=== PATIENT | female | born 1980 | race Caucasian/White ===

== ENCOUNTER 2017-04-16 14:52 | Observation (INO) ==
[2017-04-16] MEDS ORDERED: Ondansetron 4 MG/2 ML VIAL IVP ONE (15:11)
[2017-04-16] MEDS ORDERED: Famotidine 20 MG/2 ML VIAL IVP ONE (15:11)
--- NOTE | 2017-04-16 15:16 | Emergency Department Note ---
Disposition Clinical Impression: DKA (diabetic ketoacidoses) Qualifiers: Diabetes mellitus type: type 1 Diabetes mellitus complication detail: without coma Qualified Code(s): E10.10 - Type 1 diabetes mellitus with ketoacidosis without coma Disposition: Admitted As Inpatient Condition: Good Time of Disposition: 18:01 Nausea/Vomiting/Diarrhea HPI - General Chief complaint: ED Abdominal Pain Stated complaint: vomiting, thinks in DKA Time Seen by Provider: 04/16/17 15:05 Source: patient Mode of arrival: ambulatory Limitations: no limitations Nursing Notes Reviewed: Yes Vital Signs Reviewed: Yes - History of Present Illness HPI Narrative: 36-year-old insulin dependent diabetic who presents complaining of vomiting that started at noon today. She states she vomited 10-12 times. She has some sharp epigastric abdominal pain associated with the vomiting. No back pain. She has no idea what her blood sugars up and running, she states she does not check them. She states she has been taking her insulin as recommended by her physician, 7 units of short-acting insulin at meal time 3 times daily, and Lantus at night. She states the last 2 weeks she has had a cough. She states she was treated with azithromycin and doxycycline by her primary care provider. She states initially it seemed to get somewhat better but then got worse again. She states last night she vomited couple times but got better. She began vomiting and today around noon. No diarrhea. Pt Subjective Complaint: nausea, vomiting, other (Cough) Onset (ago): week(s) Description of emesis: food contents (To half weeks) Number of episodes of emesis: 10 Associated Abdominal Pain: Yes (Epigastric) If pain, Location of pain: epigastric Radiation: other (None) Severity: moderate Quality: sharp Consistency: constant Worsens with: nonthing Context: other (Insulin-dependent diabetic) Associated symptoms: Reports: cough, nausea/vomiting - Related Data Home Medications Medication Instructions Recorded Confirmed Insulin Glargine,Hum.rec.anlog 20 unit SQ HS #0 03/05/15 04/16/17 [Lantus Solostar] Insulin ASPART [NovoLOG] 0 unit SQ TIDAC PRN 08/17/16 04/16/17 CloNIDine HCl [Kapvay] 0.1 mg PO BID 08/19/16 04/16/17 Lisinopril [Zestril] 20 mg PO DAILY 10/19/16 04/16/17 Omeprazole 20 mg PO DAILY 11/04/16 04/16/17 Gabapentin [Neurontin] 100 mg PO TID 04/16/17 04/16/17 HydrOXYzine Pamoate [Vistaril] 50 mg PO TID 04/16/17 04/16/17 Allergies Allergy/AdvReac Type Severity Reaction Status Date / Time codeine Allergy Hives Verified 10/19/16 12:38 hydrocodone Allergy Rash Verified 10/19/16 12:38 ibuprofen Allergy Rash Verified 10/19/16 12:38 tramadol AdvReac Anxiety Verified 10/19/16 12:38 All systems ED: reviewed and negative except as stated. Constitutional: Denies: fever, chills ENT ED: Denies: ear pain, throat pain Cardiovascular: Denies: chest pain Respiratory: Reports: cough. Denies: dyspnea, wheezes, sputum production Gastrointestinal: Reports: abdominal pain, nausea, vomiting. Denies: diarrhea, constipation Genitourinary: Denies: urgency, dysuria, frequency Musculoskeletal: Denies: back pain Integumentary: Denies: rash Past Medical History - Past Medical History Medical history: Reports: arthritis, asthma, cirrhosis, CHF, diabetes, GERD, hepatitis, migraine, other Surgical history: Reports: appendectomy, , orthopedic, other, RAFAEL/BSO ( Patient indicates that she still has menstrual periods are not sure whether she has had a hysterectomy) Psychiatric history: Reports: anxiety, depression, panic disorder, other [employer]UFA[employer]ING [employer]IST[employer] history: Reports: bilateral tubal ligation - Social History Smoking Status: Current every day smoker Smokeless Tobacco Status: No Alcohol use: Reports: none Drug use: Reports: none, opiates, IV Drug Use Physical Exam - General Limitations: no limitations General appearance: alert, in no apparent distress - Head Head exam: atraumatic, normocephalic - Eye Eye exam: Present: PERRL, EOMI. Absent: scleral icterus, conjunctival injection - ENT ENT exam: normal oropharynx, mucous membranes moist, TM's normal bilaterally - Neck Neck exam: Present: normal inspection, full ROM, trachea midline. Absent: tenderness, lymphadenopathy - Respiratory Respiratory exam: Present: normal lung sounds bilaterally. Absent: respiratory distress, wheezes - Cardiovascular Cardiovascular exam: Present: regular rate, normal rhythm, normal heart sounds - Abdominal Exam Abdominal exam: Present: soft, tenderness, normal bowel sounds. Absent: distention, guarding, rebound, organomegaly, mass Abdominal tenderness: Present: epigastrium, mild - Extremities Exam Extremities exam: Present: normal inspection, full ROM, normal capillary refill. Absent: pedal edema, calf tenderness - Back Exam Back exam: Absent: CVA tenderness (R), CVA tenderness (L) - Neurological Exam Neurological exam: Present: alert, oriented X3, normal gait - Psychiatric Psychiatric exam: Present: normal affect, normal mood - Skin Skin exam: Present: warm, dry, intact, normal color. Absent: rash Course - Reevaluation(s) Reevaluation #1: Discussed with Dr. Wahl. Accepts admission. Time: 17:55 Vital Signs Temperature 98.9 F 04/16/17 14:54 Pulse Rate 116 04/16/17 14:54 Respiratory Rate 18 04/16/17 14:54 Blood Pressure 195/92 04/16/17 14:54 O2 Sat by Pulse Oximetry 98 04/16/17 14:54 Temperature 98.9 F 04/16/17 14:54 Pulse Rate 115 04/16/17 17:48 Respiratory Rate 18 04/16/17 18:41 Blood Pressure 155/72 04/16/17 18:41 O2 Sat by Pulse Oximetry 97 04/16/17 17:48 Oxygen Delivery Oxygen Delivery Room Air Nausea/Vomiting/Diarrhea - [facility] Narrative Medical decision making narrative: Differential includes but is not limited to DKA, dehydration, viral gastroenteritis, gastritis, peptic ulcer disease, pancreatitis, hepatitis, cholecystitis, pneumonia. Clinically I think the patient's in early DKA. Her bicarbonate is decreased, she has no anion gap. Her blood sugar is 362. Her bicarbonate is 13. Her pH is 7.36. She was hydrated. She was only given 5 units of regular insulin. She was not started on insulin drip. After about an hour her blood sugars down to 260. I do not think she needs an insulin drip. She has had no vomiting. She has had Zofran IV. Her chest x-ray shows no evidence of pneumonia. Increase DKA may be related to her viral symptoms and her lack of compliance with monitoring her blood sugar and diet. I discussed case with Dr. Wahl. He is agreeable with observation admission to a telemetry bed. I will order repeat blood sugar and electrolytes. I will continue her IV fluids for now. - Lab Data Lab results reviewed: Yes I reviewed the patient's lab results. Result diagrams: 04/16/17 16:02 04/16/17 16:02 Lab Results 04/16/17 04/16/17 04/16/17 Range/Units 15:02 15:11 16:02 WBC 10.5 (4.3-11.1) K/mcL RBC 4.17 (3.82-4.97) M/mcL Hgb 11.7 (11.5-15.4) g/dL Hct 34.5 L (35.3-44.9) % MCV 82.7 L (83.0-100.0) fL MCH 28.1 (28.0-33.3) pg MCHC 33.9 (31.6-35.5) g/dL RDW 12.5 (11.5-14.5) % Plt Count 170 (140-400) K/mcL MPV 12.2 (9.4-12.4) fL Immature Gran % 0.6 (0-4) % Seg Neutrophils % 83.6 % Lymphocytes % 12.0 % Monocytes % 2.2 % Eosinophils % 1.1 % Basophils % 0.5 % Neutrophils # 8.8 (1.6-8.9) K/mcL Lymphocytes # 1.3 (0.6-4.6) K/mcL Monocytes # 0.2 (0.0-1.3) K/mcL Eosinophils # 0.1 (0.0-0.6) K/mcL Basophils # 0.1 (0.0-0.2) K/mcL VBG pH 7.36 (7.32-7.42) pH Units VBG pCO2 31.6 L (41-51) mmHg VBG pO2 165.0 H (25-40) mmHg VBG HCO3 17.8 L (21-27) mEq/L Sodium (136-145) mEq/L Potassium (3.5-4.5) mEq/L Chloride (98-109) mEq/L Carbon Dioxide (19-29) mEq/L BUN (7-20) mg/dL Creatinine (0.57-1.11) mg/dL Est GFR ( Amer) (> 60) Est GFR (Non-Af Amer) (> 60) BUN/Creatinine Ratio (6-26) Glucose (70-99) mg/dL POC Glucose 386 H (58-89) Calculated Osmolality (280-300) Calcium (8.6-10.8) mg/dL Total Bilirubin (0.2-1.2) mg/dL AST (5-34) Units/L ALT (0-55) Units/L Alkaline Phosphatase (38-126) Units/L Serum Total Protein (6.0-8.3) g/dL Albumin (3.5-5.0) g/dL Globulin (2.4-3.5) g/dL Albumin/Globulin Ratio (1.1-2.2) Beta-Hydroxybutyric Acd (0.02-0.27) mmol/L Urine Color (Yellow) Urine Clarity (Clear) Urine pH (5.0-8.0) pH Units Ur Specific [place] (1.010-1.025) Urine Protein (Neg-Trace) mg/dL Urine Glucose (UA) (Normal) mg/dL Urine Ketones (Negative) mg/dL Urine Blood (Negative) Urine Nitrite (Negative) Urine Bilirubin (Negative) Urine Urobilinogen (Normal) mg/dL Ur Leukocyte Esterase (Negative) Urine Microscopic RBC (0-3) per hpf Urine Microscopic WBC (0-3) per hpf Ur Squamous Epith Cells (None-Few) per lpf Urine Bacteria (None-Few) per hpf Urine Yeast (None Seen) per hpf Ur Culture Indicated? (NO) Urine Test (Negative) Urine Opiates Screen (Rltyum=441) ng/mL Ur Oxycodone Screen (Cutoff= 100) ng/mL Ur Barbiturates Screen (Cbzbva=642) ng/mL Ur Phencyclidine Scrn (Cutoff=25) ng/mL Ur Amphetamines Screen (Idwlxt=6870) ng/mL U Benzodiazepines Scrn (Zcywoi=786) ng/mL Urine Cocaine Screen (Cutoff= 300) ng/mL U Marijuana (THC) Screen (Cutoff = 50) ng/mL 04/16/17 04/16/17 04/16/17 Range/Units 16:02 16:20 16:20 WBC (4.3-11.1) K/mcL RBC (3.82-4.97) M/mcL Hgb (11.5-15.4) g/dL Hct (35.3-44.9) % MCV (83.0-100.0) fL MCH (28.0-33.3) pg MCHC (31.6-35.5) g/dL RDW (11.5-14.5) % Plt Count (140-400) K/mcL MPV (9.4-12.4) fL Immature Gran % (0-4) % Seg Neutrophils % % Lymphocytes % % Monocytes % % Eosinophils % % Basophils % % Neutrophils # (1.6-8.9) K/mcL Lymphocytes # (0.6-4.6) K/mcL Monocytes # (0.0-1.3) K/mcL Eosinophils # (0.0-0.6) K/mcL Basophils # (0.0-0.2) K/mcL VBG pH (7.32-7.42) pH Units VBG pCO2 (41-51) mmHg VBG pO2 (25-40) mmHg VBG HCO3 (21-27) mEq/L Sodium 135 L (136-145) mEq/L Potassium 5.6 H (3.5-4.5) mEq/L Chloride 103 (98-109) mEq/L Carbon Dioxide 13 L (19-29) mEq/L BUN 17 (7-20) mg/dL Creatinine 1.29 H (0.57-1.11) mg/dL Est GFR ( Amer) 56 L (> 60) Est GFR (Non-Af Amer) 46 L (> 60) BUN/Creatinine Ratio 13 (6-26) Glucose 362 H (70-99) mg/dL POC Glucose (58-89) Calculated Osmolality 296 (280-300) Calcium 10.1 (8.6-10.8) mg/dL Total Bilirubin 0.3 (0.2-1.2) mg/dL AST 13 (5-34) Units/L ALT 12 (0-55) Units/L Alkaline Phosphatase 127 H (38-126) Units/L Serum Total Protein 8.1 (6.0-8.3) g/dL Albumin 3.2 L (3.5-5.0) g/dL Globulin 4.9 H (2.4-3.5) g/dL Albumin/Globulin Ratio 0.7 L (1.1-2.2) Beta-Hydroxybutyric Acd > 2.00 H (0.02-0.27) mmol/L Urine Color Yellow (Yellow) Urine Clarity Clear (Clear) Urine pH 5.5 (5.0-8.0) pH Units Ur Specific [place] 1.015 (1.010-1.025) Urine Protein 100 H (Neg-Trace) mg/dL Urine Glucose (UA) 500 H (Normal) mg/dL Urine Ketones >=160 H (Negative) mg/dL Urine Blood Small H (Negative) Urine Nitrite Negative (Negative) Urine Bilirubin Negative (Negative) Urine Urobilinogen Normal (Normal) mg/dL Ur Leukocyte Esterase Negative (Negative) Urine Microscopic RBC 0-3 (0-3) per hpf Urine Microscopic WBC 3-5 H (0-3) per hpf Ur Squamous Epith Cells Few (None-Few) per lpf Urine Bacteria Few (None-Few) per hpf Urine Yeast Few H (None Seen) per hpf Ur Culture Indicated? NO (NO) Urine Test Negative (Negative) Urine Opiates Screen (Vuekgp=843) ng/mL Ur Oxycodone Screen (Cutoff= 100) ng/mL Ur Barbiturates Screen (Edjpph=392) ng/mL Ur Phencyclidine Scrn (Cutoff=25) ng/mL Ur Amphetamines Screen (Kxcmrn=3816) ng/mL U Benzodiazepines Scrn (Baehhk=410) ng/mL Urine Cocaine Screen (Cutoff= 300) ng/mL U Marijuana (THC) Screen (Cutoff = 50) ng/mL 04/16/17 04/16/17 Range/Units 16:20 17:46 WBC (4.3-11.1) K/mcL RBC (3.82-4.97) M/mcL Hgb (11.5-15.4) g/dL Hct (35.3-44.9) % MCV (83.0-100.0) fL MCH (28.0-33.3) pg MCHC (31.6-35.5) g/dL RDW (11.5-14.5) % Plt Count (140-400) K/mcL MPV (9.4-12.4) fL Immature Gran % (0-4) % Seg Neutrophils % % Lymphocytes % % Monocytes % % Eosinophils % % Basophils % % Neutrophils # (1.6-8.9) K/mcL Lymphocytes # (0.6-4.6) K/mcL Monocytes # (0.0-1.3) K/mcL Eosinophils # (0.0-0.6) K/mcL Basophils # (0.0-0.2) K/mcL VBG pH (7.32-7.42) pH Units VBG pCO2 (41-51) mmHg VBG pO2 (25-40) mmHg VBG HCO3 (21-27) mEq/L Sodium (136-145) mEq/L Potassium (3.5-4.5) mEq/L Chloride (98-109) mEq/L Carbon Dioxide (19-29) mEq/L BUN (7-20) mg/dL Creatinine (0.57-1.11) mg/dL Est GFR ( Amer) (> 60) Est GFR (Non-Af Amer) (> 60) BUN/Creatinine Ratio (6-26) Glucose (70-99) mg/dL POC Glucose 260 H (58-89) Calculated Osmolality (280-300) Calcium (8.6-10.8) mg/dL Total Bilirubin (0.2-1.2) mg/dL AST (5-34) Units/L ALT (0-55) Units/L Alkaline Phosphatase (38-126) Units/L Serum Total Protein (6.0-8.3) g/dL Albumin (3.5-5.0) g/dL Globulin (2.4-3.5) g/dL Albumin/Globulin Ratio (1.1-2.2) Beta-Hydroxybutyric Acd (0.02-0.27) mmol/L Urine Color (Yellow) Urine Clarity (Clear) Urine pH (5.0-8.0) pH Units Ur Specific [place] (1.010-1.025) Urine Protein (Neg-Trace) mg/dL Urine Glucose (UA) (Normal) mg/dL Urine Ketones (Negative) mg/dL Urine Blood (Negative) Urine Nitrite (Negative) Urine Bilirubin (Negative) Urine Urobilinogen (Normal) mg/dL Ur Leukocyte Esterase (Negative) Urine Microscopic RBC (0-3) per hpf Urine Microscopic WBC (0-3) per hpf Ur Squamous Epith Cells (None-Few) per lpf Urine Bacteria (None-Few) per hpf Urine Yeast (None Seen) per hpf Ur Culture Indicated? (NO) Urine Test (Negative) Urine Opiates Screen Negative (Efpaxr=306) ng/mL Ur Oxycodone Screen Negative (Cutoff= 100) ng/mL Ur Barbiturates Screen Negative (Fzrqtk=160) ng/mL Ur Phencyclidine Scrn Negative (Cutoff=25) ng/mL Ur Amphetamines Screen Negative ([place]=8460) ng/mL U Benzodiazepines Scrn Negative (Jxbzam=677) ng/mL Urine Cocaine Screen Negative (Cutoff= 300) ng/mL U Marijuana (THC) Screen Negative (Cutoff = 50) ng/mL - Radiology Data Radiology results reviewed: Yes I reviewed the patient's radiology results. Impressions Chest X-Ray 04/16/17 15:13 IMPRESSION: No evidence of acute cardiopulmonary disease. D/ / Roberto Javier MD / Roberto Javier MD Interpreting Provider: Roberto Javier MD - EKG Data EKG attestation: Yes I reviewed and interpreted this EKG. EKG results narrative: Sinus tachycardia, rate of 109, left atrial enlargement, left ventricular hypertrophy. Peak T waves. Rhythm strip shows sinus tachycardia with rate 109 , VT interval 124 ms, QRS 82 ms with no other ectopy as interpreted by me. This is compared to a tracing dated 10/19/16, the LVH changes are new. The T waves are more peaked today. Critical Care Time Critical Care Time: Yes Total Critical Care Time: 30 Attestation: Critical care time includes my initial evaluation, reassessment, review of laboratory, chest x-ray. It includes consultation with the hospitalist for admission. No procedures were performed.
[2017-04-16 16:16] LABS: Basophils # 0.1 K/mcL (0.0-0.2); Basophils % 0.5 %; Eosinophils # 0.1 K/mcL (0.0-0.6); Eosinophils % 1.1 %; Hematocrit 34.5 % (35.3-44.9); Hemoglobin 11.7 g/dL (11.5-15.4); Immature Granulocytes % 0.6 % (0-4); Lymphocytes # 1.3 K/mcL (0.6-4.6); Mean Corpuscular HGB Conc 33.9 g/dL (31.6-35.5); Mean Corpuscular Hemoglobin 28.1 pg (28.0-33.3); Mean Corpuscular Volume 82.7 fL (83.0-100.0); Mean Platelet Volume 12.2 fL (9.4-12.4); Monocytes # 0.2 K/mcL (0.0-1.3); Monocytes % 2.2 %; Neutrophils # 8.8 K/mcL (1.6-8.9); Platelet Count 170 K/mcL (140-400); Red Blood Count 4.17 M/mcL (3.82-4.97); Red Cell Distribution Width 12.5 % (11.5-14.5); Segmented Neutrophils % 83.6 %
[2017-04-16] MEDS: 0.9 % Sodium Chloride 1,000 ML IVC SCH ×5 (16:17→20:21)
[2017-04-16 16:19] LABS: Beta-Hydroxybutyric Acid > 2.00 mmol/L (0.02-0.27)
[2017-04-16 16:27] LABS: Alanine Aminotransferase 12 Units/L (0-55); Albumin 3.2 g/dL (3.5-5.0); Albumin/Globulin Ratio 0.7 (1.1-2.2); Alkaline Phosphatase 127 Units/L (38-126); Aspartate Amino Transferase 13 Units/L (5-34); BUN/Creatinine Ratio 13 (6-26); Bilirubin,Total 0.3 mg/dL (0.2-1.2); Blood Urea Nitrogen 17 mg/dL (7-20); Calcium 10.1 mg/dL (8.6-10.8); Carbon Dioxide 13 mEq/L (19-29); Chloride 103 mEq/L (98-109); Globulin 4.9 g/dL (2.4-3.5); Glucose 362 mg/dL (70-99); Osmolality,Calculated 296 (280-300); Potassium 5.6 mEq/L (3.5-4.5); Sodium 135 mEq/L (136-145); Total Protein 8.1 g/dL (6.0-8.3); eGFR For African Americans 56 (> 60); eGFR For Non-African Americans 46 (> 60)
[2017-04-16 16:33] LABS: Bilirubin,Urine Negative (Negative); Blood,Urine Small (Negative); Clarity,Urine Clear (Clear); Color,Urine Yellow (Yellow); Glucose,Urine (UA) 500 mg/dL (Normal); Ketones,Urine >=160 mg/dL (Negative); Leukocyte Esterase,Urine Negative (Negative); Nitrite,Urine Negative (Negative); PH,Urine 5.5 pH Units (5.0-8.0); Protein,Urine 100 mg/dL (Neg-Trace); Specific Gravity,Urine 1.015 (1.010-1.025); Urobilinogen,Urine Normal (Normal)
[2017-04-16 16:36] LABS: VBG PCO2 31.6 mmHg (41-51); VBG PH 7.36 pH Units (7.32-7.42)
[2017-04-16 16:37] LABS: VBG HCO3 17.8 mEq/L (21-27)
[2017-04-16 16:40] LABS: Amphetamine Screen,Urine Negative ng/mL (Cutoff=1000); Bacteria,Urine Few per hpf (None-Few); Barbiturate Screen,Urine Negative ng/mL (Cutoff=200); Benzodiazepines Screen,Urine Negative ng/mL (Cutoff=200); Cannabinoid Screen,Urine Negative ng/mL (Cutoff = 50); Cocaine Screen,Urine Negative ng/mL (Cutoff= 300); Opiate Screen,Urine Negative ng/mL (Cutoff=300); Phencyclidine Screen,Urine Negative ng/mL (Cutoff=25); RBC,Urine 0-3 per hpf (0-3); Squamous Epithelial Cell,Urine Few per lpf (None-Few); Yeast,Urine Few per hpf (None Seen)
[2017-04-16] MEDS ORDERED: Insulin Regular, Human 100 UNIT/ML IV ONE (16:40)
[2017-04-16] MEDS ORDERED: 0.9 % Sodium Chloride 1,000 ML IVC SCH (18:42)
[2017-04-16] MEDS ORDERED: Ondansetron 4 MG/2 ML VIAL IVP PRN (18:42)
[2017-04-16] MEDS ORDERED: Naloxone 0.4 MG/ML INJ IVP PRN (18:42)
[2017-04-16] MEDS ORDERED: *HR* Dextrose 50 % in Water (Syg) 50 ML SYRINGE IVP PRN (18:42)
[2017-04-16] MEDS ORDERED: Dextrose Gel 15 GM PO PRN ×2 (18:42)
[2017-04-16] MEDS ORDERED: D5% in Water 1,000 ML IVC PRN (18:42)
[2017-04-16 20:10] LABS: Hemoglobin A1C 9.1 %
[2017-04-16 20:18] LABS: BUN/Creatinine Ratio 14 (6-26); Blood Urea Nitrogen 14 mg/dL (7-20); Calcium 8.9 mg/dL (8.6-10.8); Carbon Dioxide 15 mEq/L (19-29); Chloride 110 mEq/L (98-109); Glucose 236 mg/dL (70-99); Osmolality,Calculated 292 (280-300); Potassium 4.5 mEq/L (3.5-4.5); Sodium 137 mEq/L (136-145); eGFR For African Americans > 60 (> 60); eGFR For Non-African Americans > 60 (> 60)
[2017-04-16] MEDS: hydrOXYzine pamoate 25 MG CAPSULE PO SCH (20:22)
[2017-04-16] MEDS: Gabapentin 100 MG CAPSULE PO SCH (20:22)
[2017-04-16] MEDS: cloNIDine HCl 0.1 MG TABLET PO SCH (20:23)
[2017-04-16] MEDS ORDERED: Insulin LISPRO 300 UNITS/3 ML VIAL SQ SCH (21:00)
[2017-04-17] MEDS ORDERED: Insulin LISPRO 300 UNITS/3 ML VIAL SQ SCH
[2017-04-17] MEDS: Acetaminophen 325 MG TABLET PO PRN ×2 (03:47→11:40)
[2017-04-17] MEDS: 0.9 % Sodium Chloride 1,000 ML IVC SCH (06:49)
[2017-04-17] MEDS: Gabapentin 100 MG CAPSULE PO SCH (07:47)
[2017-04-17] MEDS: hydrOXYzine pamoate 25 MG CAPSULE PO SCH (07:47)
[2017-04-17] MEDS: cloNIDine HCl 0.1 MG TABLET PO SCH (07:47)
[2017-04-17] MEDS: Insulin LISPRO 300 UNITS/3 ML VIAL SQ SCH ×2 (07:48→11:41)
[2017-04-17] MEDS ORDERED: Lisinopril 20 MG TABLET PO SCH (09:00)
[2017-04-17 11:35] VITALS: BP 120/72
--- NOTE | 2017-04-17 11:37 | Internal Med History&Physical ---
Date of Encounter: 04/17/17 Time of Encounter: 11:05 Assessment and Plan (1) DKA (diabetic ketoacidoses) Current visit: Yes Status: Acute She has been given insulin and IV fluids. Follow-up labs will be done. Qualifiers: Diabetes mellitus type: type 1 Diabetes mellitus complication detail: without coma Qualified Code(s): E10.10 - Type 1 diabetes mellitus with ketoacidosis without coma Internal Medicine - H&P: HPI Chief complaint: Vomiting Admitted From: Home Plans for Post Hospital Care: Home History of present illness: Ms. Pappas is a 36 year old female came to emergency room stating she had onset of vomiting approximately noon the day of admission. She had 10-12 episodes of vomiting without obvious hematemesis. She had epigastric discomfort. She came to emergency room and was evaluated and found to have mild diabetic ketoacidosis. She was admitted to [facility] floor for ongoing care needs. She states she has had no vomiting since awakening today and has tolerated her meals without difficulty. She was diagnosed with DM type I at age 10. She does not check her blood sugars at home. She was told she had a "thyroid problem" during a September 2016 [facility] hospitalization but does not know details. She does not have known hyperlipidemia. Past Med Surg Social Fam HX - Past Medical History Medical history: arthritis, asthma, cirrhosis, CHF, diabetes, GERD, hepatitis, migraine, other Psychiatric history: anxiety, depression, panic disorder, other - Past Surgical History Surgical History: appendectomy, , orthopedic, other, RAFAEL/BSO - Social History Smoking Status: Current every day smoker Smokeless Tobacco Status: No Alcohol use: none Drug use: opiates, IV Drug Use - Family History Mother Adopted: No Family Member Ethnicity: Non- Living Status: Still Living Hx Family Cardiac Disorders: Yes Hx Family Respiratory Disorders: Yes Hx Family Cancer: Yes Hx Family GI Disorders: Yes Hx Family Endocrine Disorder: Yes Hx Family Neuromuscular Disorders: No Hx Family Neurologic Disorders: No Hx Family HEENT Disorders: No Hx Family Autoimmune Disorders: No Internal Medicine - H&P: Meds Insulin Glargine,Hum.rec.anlog [Lantus Solostar] 20 unit SQ HS #0 03/05/15 [ History] Insulin ASPART [NovoLOG] 0 unit SQ TIDAC PRN 08/17/16 [History] CloNIDine HCl [Kapvay] 0.1 mg PO BID 08/19/16 [History] Lisinopril [Zestril] 20 mg PO DAILY 10/19/16 [History] Omeprazole 20 mg PO DAILY 11/04/16 [History] Gabapentin [Neurontin] 100 mg PO TID 04/16/17 [History] HydrOXYzine Pamoate [Vistaril] 50 mg PO TID 04/16/17 [History] 3 Allergy/AdvReac Type Severity Reaction Status Date / Time codeine Allergy Hives Verified 10/19/16 12:38 hydrocodone Allergy Rash Verified 10/19/16 12:38 ibuprofen Allergy Rash Verified 10/19/16 12:38 tramadol AdvReac Anxiety Verified 10/19/16 12:38 All Systems PM: A 10-system review of systems was performed and is negative for pertinent findings except as documented above in the HPI. Review of systems: Gen.: She states her weight has decreased approximately 15 pounds in the past 2 months Cardiovascular: She has history of hypertension. She reports she has been diagnosed with CHF. An echocardiogram done 10/06/2015 showed LVEF of 60% with moderate diastolic dysfunction of the left ventricle. There was no significant valvular abnormalities. She has occasional sinus tachycardia. She denies DVT or pulmonary embolus. Respiratory: She has been diagnosed with chronic bronchitis but continues to smoke cigarettes. States she has "breathing problems" and received a Z-Ti within the past month. She does not use home oxygen. GI: She has been diagnosed with hepatitis C but has not received treatment. She has had a gallstone but has not had cholecystectomy. Denies disorders of her exocrine pancreas. : She denies hematuria dysuria or kidney stones Neurologic: She states she had a seizure in September 2016 which was attributed to drug overdose. She required intubation and ventilatory support. She has had no further seizures. She denies large distribution strokes. Endocrine: As per history of present illness Hematology/oncology: She denies blood disorders cancers or anemia Psychiatric: She has anxiety but denies depression or other mental health issues Musk skeletal: She denies arthritis or gout. She reports right ankle surgery on 5 occasions between December 2014 and July 2015. She had partial fibula resection. - Constitutional Vitals: Temp Pulse Resp BP Pulse Ox 98.0 F 95 16 137/72 96 04/17/17 07:55 04/17/17 07:55 04/17/17 07:55 04/17/17 07:55 04/17/17 07:55 Exam: Gen.: She is a well-developed well-nourished female lying in bed who appears in no acute distress at present time HEENT: Head is atraumatic and normocephalic. Eyes: EOMI. There is no scleral icterus. Mouth: Mucosa is moist. Neck: Supple and nontender. There is no thyromegaly or adenopathy noted. Heart: Regular without murmurs gallops or ectopics. No wheezes or crackles are heard. Abdomen: Bowel sounds are present. The abdomen is nontender to palpation. Extremities: There is no cyanosis edema or clubbing noted. Dorsalis pedis and posttibial pulses 1-2 over 2 bilaterally. She has a well-healed surgical scar on her medial right ankle area. Neurologic: Mental status: She is talkative and a good historian. Cranial nerves: Smile is symmetric. Forehead wrinkles bilaterally. Tongue protrudes midline. EOMI. Motor: There is no pronator drift. Cerebellar: Finger to nose is intact bilaterally. Skin: Warm and dry. She has multiple tattoos. Internal Med - H&P Results - Labs CBC & Chem 7: 04/16/17 16:02 04/16/17 19:54 Labs: BMP 04/16/17 19:54 Sodium 137 Potassium 4.5 D Chloride 110 H Carbon Dioxide 15 L BUN 14 Creatinine 0.99 Glucose 236 H Calcium 8.9
[2017-04-17 13:17] LABS: BUN/Creatinine Ratio 12 (6-26); Blood Urea Nitrogen 13 mg/dL (7-20); Calcium 8.4 mg/dL (8.6-10.8); Carbon Dioxide 15 mEq/L (19-29); Chloride 112 mEq/L (98-109); Glucose 291 mg/dL (70-99); Osmolality,Calculated 295 (280-300); Potassium 4.4 mEq/L (3.5-4.5); Sodium 137 mEq/L (136-145); eGFR For African Americans > 60 (> 60); eGFR For Non-African Americans 56 (> 60)
[2017-04-17 13:33] LABS: Beta-Hydroxybutyric Acid 0.18 mmol/L (0.02-0.27)
--- NOTE | 2017-04-17 14:23 | Discharge Summary ---
Date of Encounter: 04/17/17 Time of Encounter: 14:10 - Discharge Diagnosis (1) DKA (diabetic ketoacidoses) Priority: Primary Status: Acute Qualifiers: Diabetes mellitus type: type 1 Diabetes mellitus complication detail: without coma Qualified Code(s): E10.10 - Type 1 diabetes mellitus with ketoacidosis without coma - Discharge Medications Prescriptions: Promethazine [Phenergan] 12.5 mg PO Q6H #6 tablet Home Medications: Insulin Glargine,Hum.rec.anlog [Lantus Solostar] 20 unit SQ HS #0 03/05/15 [ History] Insulin ASPART [NovoLOG] 0 unit SQ TIDAC PRN 08/17/16 [History] CloNIDine HCl [Kapvay] 0.1 mg PO BID 08/19/16 [History] Lisinopril [Zestril] 20 mg PO DAILY 10/19/16 [History] Omeprazole 20 mg PO DAILY 11/04/16 [History] Gabapentin [Neurontin] 100 mg PO TID 04/16/17 [History] HydrOXYzine Pamoate [Vistaril] 50 mg PO TID 04/16/17 [History] Promethazine [Phenergan] 12.5 mg PO Q6H #6 tablet 04/17/17 [Rx] Allergies/Adverse Reactions: 3 Allergy/AdvReac Type Severity Reaction Status Date / Time codeine Allergy Hives Verified 10/19/16 12:38 hydrocodone Allergy Rash Verified 10/19/16 12:38 ibuprofen Allergy Rash Verified 10/19/16 12:38 tramadol AdvReac Anxiety Verified 10/19/16 12:38 Date of admission: 04/16/17 18:19 Primary care physician: Pipo Roberts CNP - Patient Status Disposition: Home, Self-Care Condition: Good Functional capacity at discharge: independent ambulation Overall status at discharge: patient is progressing back to baseline - Discharge Instructions Follow Up With: Pipo Roberts CNP [Primary Care Provider] - 1 week - Diet and Activity Activity: resume usual activities as tolerated Diet: diabetic diet Hospital course: Ms. Pappas is a 36 year old female who came to emergency room stating she had onset of vomiting approximately noon the day of admission. She had 10-12 episodes of vomiting without obvious hematemesis. She had epigastric discomfort. She came to emergency room and was evaluated and found to have mild diabetic ketoacidosis. She was admitted to [facility] for ongoing care needs. Initial orders were written by the emergency room physician. I saw her on April 17 performed a history and physical and discharge. She was given IV fluids and prn antiemetics. She had no further vomiting after admission to [facility]. She was able to tolerate breakfast and lunch on April 17 without difficulty. Follow-up lab work showed resolution of ketosis. Her serum CO2 was still slightly low at 15. Her PCP can recheck this. Her creatinine aurelio to 1.10 with estimated GFR 56 on the day of discharge. She felt back to her baseline however and wished to be discharged home which I felt was reasonable. She will resume her home Lantus insulin dose. Her PCP can assist her in getting a home glucose meter with supplies to monitor her blood sugars. I encouraged her to discontinue smoking. She will follow with her PCP Pipo Roberts CNP within 1 week. - Time Spent with Patient Total time spent providing and/or coordinating discharge services: - Constitutional Vitals: Temp Pulse Resp BP Pulse Ox 98.8 F 93 16 120/72 96 04/17/17 11:33 04/17/17 11:33 04/17/17 11:33 04/17/17 11:33 04/17/17 11:54
--- NOTE | 2017-04-18 18:17 | Electrocardiograph Report ---
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
== END 2017-04-17 14:48 | disposition home or self-care (01) ==
LOC: EMEROOPIK 14:52 → INPPIK 14:52
PROVIDERS: ADMIT Internal Medicine; ATTEND Internal Medicine

== ENCOUNTER 2017-05-12 10:45 | Observation (INO) ==
[2017-05-12] MEDS ORDERED: Ondansetron ODT 4 MG TAB.RAPDIS SL ONE (11:07)
--- NOTE | 2017-05-12 11:08 | Emergency Department Note ---
Disposition Clinical Impression: Dehydration, Uncontrolled type 2 DM with hyperosmolar nonketotic hyperglycemia Disposition: Admitted As Inpatient Condition: Fair Time of Disposition: 12:48 (balbina velez [facility]) Nausea/Vomiting/Diarrhea HPI - General Chief complaint: ED Nausea/Vomiting/Diarrhea Stated complaint: vomiting, elevated blood sugar, Time Seen by Provider: 05/12/17 11:00 Source: patient Mode of arrival: ambulatory Limitations: no limitations Nursing Notes Reviewed: Yes Vital Signs Reviewed: Yes - History of Present Illness Pt Subjective Complaint: nausea, vomiting, abdominal pain Onset (ago): day(s) Description of emesis: food contents Description of Diarrhea: water If pain, Location of pain: diffuse Severity: moderate Severity scale (1-10): 4 Quality: cramping Consistency: constant Improves with: nothing Worsens with: nonthing Context: other (frequently due to diabetes) Associated symptoms: Reports: myalgias, loss of appetite, malaise, nausea/ vomiting, weakness. Denies: chest pain, cough, diaphoresis, fever/chills, headaches, dysuria, shortness of breath, syncope - Related Data Home Medications Medication Instructions Recorded Confirmed Insulin Glargine,Hum.rec.anlog 20 unit SQ HS #0 03/05/15 05/12/17 [Lantus Solostar] Insulin ASPART [NovoLOG] 0 unit SQ TIDAC PRN 08/17/16 05/12/17 CloNIDine HCl [Kapvay] 0.1 mg PO BID 08/19/16 05/12/17 Lisinopril [Zestril] 30 mg PO DAILY 10/19/16 04/29/17 Omeprazole 20 mg PO DAILY 11/04/16 05/12/17 Gabapentin [Neurontin] 600 mg PO TID 04/16/17 04/29/17 HydrOXYzine Pamoate [Vistaril] 50 mg PO TID 04/16/17 05/12/17 Insulin Glargine [Lantus] 10 unit SQ TID 05/12/17 05/12/17 Naltrexone Microspheres [Vivitrol] 380 mg IM QMONTH 05/12/17 05/12/17 Promethazine [Phenergan] 12.5 mg PO Q6H PRN 05/12/17 05/12/17 Previous Rx's Medication Instructions Recorded predniSONE [PredniSONE] 40 mg PO DAILY #10 tablet 10/01/17 Allergies Allergy/AdvReac Type Severity Reaction Status Date / Time Amoxicillin Allergy See Verified 05/12/17 10:47 Comments codeine Allergy Hives Verified 05/12/17 10:47 hydrocodone Allergy Rash Verified 05/12/17 10:47 ibuprofen Allergy Rash Verified 05/12/17 10:47 tramadol AdvReac Anxiety Verified 05/12/17 10:47 All systems ED: reviewed and negative except as stated. Review of Systems: As Per HPI Constitutional: Reports: weakness. Denies: fever, chills Eyes: Denies: eye pain ENT ED: Denies: ear pain, throat pain Cardiovascular: Reports: palpitations. Denies: chest pain, dyspnea on exertion Respiratory: Denies: cough, dyspnea, wheezes Gastrointestinal: Reports: nausea, vomiting. Denies: abdominal pain Genitourinary: Denies: urgency, dysuria, frequency Musculoskeletal: Denies: back pain, neck pain, joint swelling Integumentary: Denies: rash, abrasion Neurological: Denies: headache, weakness Psychiatric: Denies: anxiety Endocrine: Denies: fatigue Hematological/Lymphatic: Denies: easy bleeding Allergic/Immunologic: Denies: facial swelling Past Medical History - Past Medical History Attestation: Yes The following information was validated with the patient. 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 - Social History Smoking Status: Current every day smoker Smokeless Tobacco Status: No Alcohol use: Reports: none Drug use: Reports: opiates, IV Drug Use Physical Exam - General Limitations: no limitations General appearance: alert, in no apparent distress, anxious - Head Head exam: atraumatic, normocephalic, normal inspection - Eye Eye exam: Present: normal appearance, PERRL, EOMI - ENT ENT exam: normal exam, normal oropharynx, mucous membranes moist, normal external ear exam - Neck Neck exam: Present: normal inspection, full ROM, trachea midline - Chest Chest inspection: Present: normal inspection - Respiratory Respiratory exam: Present: normal lung sounds bilaterally - Cardiovascular Cardiovascular exam: Present: regular rate, normal rhythm, normal heart sounds - Abdominal Exam Abdominal exam: Present: soft, Non-Tender, hyperactive bowel sounds. Absent: mass, pulsatile mass - Extremities Exam Extremities exam: Present: normal inspection, full ROM, normal capillary refill. Absent: tenderness, pedal edema, joint swelling, calf tenderness - Expanded Lower Extremity Exam Gait: observed and normal - Back Exam Back exam: Present: normal inspection, full ROM. Absent: muscle spasm - Neurological Exam Neurological exam: Present: alert, oriented X3, CN II-XII intact - Psychiatric Psychiatric exam: Present: normal affect, normal mood - Skin Skin exam: Present: warm, dry, intact, normal color Course Course Narrative: Patient was seen and examined patient was given 8 mg Zofran still continue to have actively vomiting was given IM Phenergan and still continued to have episodes of heart vomitus type presentation though her white count is elevated is most likely is a stress reaction she is tachycardic and tachypneic this is most likely secondary to her being dehydrated though she does have some of the indicators for sepsis this does appear to be all related to dehydration and gastroparesis most likely etiology patient is going to this frequently patient is admitted transferred to [facility] Dr. Wahl Vital Signs Temperature 97.8 F 05/12/17 10:53 Pulse Rate 116 05/12/17 10:53 Respiratory Rate 18 05/12/17 10:53 Blood Pressure 152/69 05/12/17 10:53 O2 Sat by Pulse Oximetry 98 05/12/17 10:53 Temperature 97.8 F 05/12/17 10:53 Pulse Rate 113 05/12/17 13:00 Respiratory Rate 18 05/12/17 13:00 Blood Pressure 161/73 05/12/17 13:00 O2 Sat by Pulse Oximetry 97 05/12/17 13:00 Oxygen Delivery Oxygen Delivery Nasal Cannula Nausea/Vomiting/Diarrhea - MDM Narrative Medical decision making narrative: Diabetes complications - Differential Diagnosis Likely: gastroenteritis, dehydration - Medical Records Medical records reviewed: Yes I reviewed the patient's medical records. - Lab Data Lab results reviewed: Yes I reviewed the patient's lab results. Result diagrams: 05/12/17 11:20 05/12/17 11:20 Lab Results 05/12/17 05/12/17 05/12/17 Range/Units 11:20 11:20 12:25 WBC 25.8 H (4.3-11.1) K/mcL RBC 3.70 L (3.82-4.97) M/mcL Hgb 10.3 L (11.5-15.4) g/dL Hct 31.9 L (35.3-44.9) % MCV 86.2 (83.0-100.0) fL MCH 27.8 L (28.0-33.3) pg MCHC 32.3 (31.6-35.5) g/dL RDW 14.3 (11.5-14.5) % Plt Count 149 (140-400) K/mcL MPV 12.2 (9.4-12.4) fL Immature Gran % 0.8 (0-4) % Seg Neutrophils % 91.2 % Lymphocytes % 4.5 % Monocytes % 2.8 % Eosinophils % 0.5 % Basophils % 0.2 % Neutrophils # 23.5 H (1.6-8.9) K/mcL Lymphocytes # 1.2 (0.6-4.6) K/mcL Monocytes # 0.7 (0.0-1.3) K/mcL Eosinophils # 0.1 (0.0-0.6) K/mcL Basophils # 0.1 (0.0-0.2) K/mcL Platelet Estimate Normal (Normal) Sodium 138 (136-145) mEq/L Potassium 5.3 H (3.5-4.5) mEq/L Chloride 113 H (98-109) mEq/L Carbon Dioxide 18 L (19-29) mEq/L BUN 16 (7-20) mg/dL Creatinine 1.34 H (0.57-1.11) mg/dL Est GFR ( Amer) 54 L (> 60) Est GFR (Non-Af Amer) 44 L (> 60) BUN/Creatinine Ratio 12 (6-26) Glucose 236 H (70-99) mg/dL Calculated Osmolality 295 (280-300) Calcium 9.7 (8.6-10.8) mg/dL Total Bilirubin 0.3 (0.2-1.2) mg/dL AST 18 (5-34) Units/L ALT 16 (0-55) Units/L Alkaline Phosphatase 119 (38-126) Units/L Serum Total Protein 7.2 (6.0-8.3) g/dL Albumin 2.9 L (3.5-5.0) g/dL Globulin 4.3 H (2.4-3.5) g/dL Albumin/Globulin Ratio 0.7 L (1.1-2.2) Beta-Hydroxybutyric Acd 0.27 (0.02-0.27) mmol/L Urine Color Yellow (Yellow) Urine Clarity Clear (Clear) Urine pH 5.5 (5.0-8.0) pH Units Ur Specific [place] 1.015 (1.010-1.025) Urine Protein 30 H (Neg-Trace) mg/dL Urine Glucose (UA) 500 H (Normal) mg/dL Urine Ketones Negative (Negative) mg/dL Urine Blood Trace-intact H (Negative) Urine Nitrite Negative (Negative) Urine Bilirubin Negative (Negative) Urine Urobilinogen Normal (Normal) mg/dL Ur Leukocyte Esterase Negative (Negative) Urine Microscopic RBC 0-3 (0-3) per hpf Urine Microscopic WBC 0-3 (0-3) per hpf Ur Squamous Epith Cells Many H (None-Few) per lpf Urine Bacteria Few (None-Few) per hpf WBC Casts Few H (None Seen) per lpf Ur Culture Indicated? NO (NO) Critical Care Time Critical Care Time: No
[2017-05-12 11:34] LABS: Basophils # 0.1 K/mcL (0.0-0.2); Basophils % 0.2 %; Eosinophils # 0.1 K/mcL (0.0-0.6); Eosinophils % 0.5 %; Hematocrit 31.9 % (35.3-44.9); Hemoglobin 10.3 g/dL (11.5-15.4); Immature Granulocytes % 0.8 % (0-4); Lymphocytes # 1.2 K/mcL (0.6-4.6); Lymphocytes % 4.5 %; Mean Corpuscular HGB Conc 32.3 g/dL (31.6-35.5); Mean Corpuscular Hemoglobin 27.8 pg (28.0-33.3); Mean Corpuscular Volume 86.2 fL (83.0-100.0); Mean Platelet Volume 12.2 fL (9.4-12.4); Monocytes # 0.7 K/mcL (0.0-1.3); Monocytes % 2.8 %; Neutrophils # 23.5 K/mcL (1.6-8.9); Platelet Count 149 K/mcL (140-400); Red Cell Distribution Width 14.3 % (11.5-14.5); Segmented Neutrophils % 91.2 %
[2017-05-12 11:40] LABS: Beta-Hydroxybutyric Acid 0.27 mmol/L (0.02-0.27)
[2017-05-12 11:51] LABS: Albumin 2.9 g/dL (3.5-5.0); Albumin/Globulin Ratio 0.7 (1.1-2.2); Bilirubin,Total 0.3 mg/dL (0.2-1.2); Calcium 9.7 mg/dL (8.6-10.8); Globulin 4.3 g/dL (2.4-3.5); Potassium 5.3 mEq/L (3.5-4.5); Total Protein 7.2 g/dL (6.0-8.3)
[2017-05-12] MEDS ORDERED: *HR* Promethazine 25 MG/ML VIAL IVP ONE (11:56)
[2017-05-12 12:03] LABS: Platelet Estimate Normal (Normal)
[2017-05-12 12:31] LABS: Bilirubin,Urine Negative (Negative); Blood,Urine Trace-intact (Negative); Clarity,Urine Clear (Clear); Color,Urine Yellow (Yellow); Glucose,Urine (UA) 500 mg/dL (Normal); Ketones,Urine Negative (Negative); Leukocyte Esterase,Urine Negative (Negative); Nitrite,Urine Negative (Negative); PH,Urine 5.5 pH Units (5.0-8.0); Protein,Urine 30 mg/dL (Neg-Trace); Specific Gravity,Urine 1.015 (1.010-1.025); Urobilinogen,Urine Normal (Normal)
[2017-05-12 12:40] LABS: Bacteria,Urine Few per hpf (None-Few); RBC,Urine 0-3 per hpf (0-3); Squamous Epithelial Cell,Urine Many per lpf (None-Few); WBC,Urine 0-3 per hpf (0-3); White Blood Cell Casts,Urine Few per lpf (None Seen)
[2017-05-12] MEDS: 0.9 % Sodium Chloride 1,000 ML IVC SCH ×5 (13:20→17:07)
[2017-05-12] MEDS ORDERED: D5% in Water 1,000 ML IVC PRN (13:23)
[2017-05-12] MEDS ORDERED: Ondansetron ODT 4 MG TAB.RAPDIS SL PRN (13:23)
[2017-05-12] MEDS ORDERED: Naloxone 0.4 MG/ML INJ IVP PRN (13:23)
[2017-05-12] MEDS ORDERED: *HR* Promethazine 25 MG/ML VIAL IVP PRN (13:23)
[2017-05-12] MEDS ORDERED: Dextrose Gel 15 GM PO PRN ×2 (13:23)
[2017-05-12] MEDS ORDERED: 0.9 % Sodium Chloride 1,000 ML IVC SCH (13:23)
[2017-05-12] MEDS ORDERED: *HR* Dextrose 50 % in Water (Syg) 50 ML SYRINGE IVP PRN (13:23)
[2017-05-12] MEDS ORDERED: Ondansetron 4 MG/2 ML VIAL IVP PRN (13:23)
--- NOTE | 2017-05-12 14:26 | Internal Med History&Physical ---
Date of Encounter: 05/12/17 Time of Encounter: 14:00 Assessment and Plan (1) Vomiting Current visit: Yes Status: Acute Possibly viral gastroenteritis. Will give IV fluids and prn antiemetics. Recheck labs in a.m. Advance diet as tolerated. Qualifiers: Vomiting type: bilious vomiting Nausea presence: with nausea Qualified Code(s): R11.14 - Bilious vomiting (2) Azotemia Current visit: Yes Status: Acute Creatinine has increased from 0.99 on 04/16/2017 to 1.34 at present. Will give IV fluids and recheck labs in a.m. (3) Anemia Current visit: Yes Status: Acute Hemoglobin has decreased to 10.3. Will check anemia testing in a.m. Qualifiers: Anemia type: unspecified type Qualified Code(s): D64.9 - Anemia, unspecified (4) Leukocytosis Current visit: No Status: Acute Possibly secondary to gastroenteritis. We will recheck labs in a.m. Qualifiers: Leukocytosis type: unspecified Qualified Code(s): D72.829 - Elevated white blood cell count, unspecified Internal Medicine - H&P: HPI Chief complaint: Vomiting Admitted From: Home Plans for Post Hospital Care: Home History of present illness: Ms. Pappas is a 36 year old female who came to the emergency room stating she awakened 0600 today and had onset of vomiting. She reports she vomited green bilous material approximately 6 times prior to coming to the hospital. She denies hematemesis. She denies abdominal pain or diarrhea. She came to emergency room and was evaluated and found to have leukocytosis with left shift on the differential. She was admitted to [facility] floor for ongoing care needs. She denies fevers chills or other infectious symptoms. She denies other family members with similar illnesses. Her GI history is pertinent for being diagnosed with hepatitis C but she has not received treatment. She has had a gallstone in the past but has not had cholecystectomy. She denies disorders of her exocrine pancreas. Past Med Surg Social Fam HX - Past Medical History Medical history: arthritis, asthma, cirrhosis, CHF, diabetes, GERD, hepatitis, migraine, other Psychiatric history: anxiety, depression, panic disorder, other - Past Surgical History Surgical History: appendectomy, , orthopedic, other, RAFAEL/BSO - Social History Smoking Status: Current every day smoker Smokeless Tobacco Status: No Alcohol use: none Drug use: opiates, IV Drug Use - Family History Mother Adopted: No Family Member Ethnicity: Non- Living Status: Still Living Hx Family Cardiac Disorders: Yes Hx Family Respiratory Disorders: Yes Hx Family Cancer: Yes Hx Family GI Disorders: Yes Hx Family Endocrine Disorder: Yes Hx Family Neuromuscular Disorders: No Hx Family Neurologic Disorders: No Hx Family HEENT Disorders: No Hx Family Autoimmune Disorders: No Internal Medicine - H&P: Meds Insulin Glargine,Hum.rec.anlog [Lantus Solostar] 20 unit SQ HS #0 03/05/15 [ History] Insulin ASPART [NovoLOG] 0 unit SQ TIDAC PRN 08/17/16 [History] CloNIDine HCl [Kapvay] 0.1 mg PO BID 08/19/16 [History] Lisinopril [Zestril] 30 mg PO DAILY 10/19/16 [History] Omeprazole 20 mg PO DAILY 11/04/16 [History] Gabapentin [Neurontin] 600 mg PO TID 04/16/17 [History] HydrOXYzine Pamoate [Vistaril] 50 mg PO TID 04/16/17 [History] predniSONE [PredniSONE] 40 mg PO DAILY #10 tablet 04/30/17 [Rx] Insulin Glargine [Lantus] 10 unit SQ TID 05/12/17 [History] Naltrexone Microspheres [Vivitrol] 380 mg IM QMONTH 05/12/17 [History] Promethazine [Phenergan] 12.5 mg PO Q6H PRN 05/12/17 [History] 3 Allergy/AdvReac Type Severity Reaction Status Date / Time Amoxicillin Allergy See Verified 05/12/17 10:47 Comments codeine Allergy Hives Verified 05/12/17 10:47 hydrocodone Allergy Rash Verified 05/12/17 10:47 ibuprofen Allergy Rash Verified 05/12/17 10:47 tramadol AdvReac Anxiety Verified 05/12/17 10:47 All Systems PM: A 10-system review of systems was performed and is negative for pertinent findings except as documented above in the HPI. Review of systems: Review of systems from her [facility] hospitalization were reviewed and revised as below. Gen.: Her weight has increased from 74.843 kg on 04/16/2017 to 77.61 kg presently. Cardiovascular: She has history of hypertension. She reports she has been diagnosed with CHF. An echocardiogram done 10/06/2015 showed LVEF of 60% with moderate diastolic dysfunction of the left ventricle. There was no significant valvular abnormalities. She has occasional sinus tachycardia. She denies DVT or pulmonary embolus. Respiratory: She has been diagnosed with chronic bronchitis but continues to smoke cigarettes. States she has "breathing problems" and received a Z-Ti within the past month. She does not use home oxygen. GI: As per history of present illness : She denies hematuria dysuria or kidney stones Neurologic: She states she had a seizure in September 2016 which was attributed to drug overdose. She required intubation and ventilatory support. She has had no further seizures. She denies large distribution strokes. Endocrine: She was diagnosed with DM type I at age 10. She does not check her blood sugars at home. She was told she had a "thyroid problem" during a September 2016 [facility] hospitalization but does not know details. She does not have known hyperlipidemia. Hematology/oncology: She denies blood disorders cancers or anemia Psychiatric: She has anxiety but denies depression or other mental health issues Musk skeletal: She denies arthritis or gout. She reports right ankle surgery on 5 occasions between December 2014 and July 2015. She had partial fibula resection. - Constitutional Vitals: Temp Pulse Resp BP Pulse Ox 98.6 F 114 16 141/75 97 05/12/17 13:28 05/12/17 13:28 05/12/17 13:28 05/12/17 13:28 05/12/17 13:28 Exam: Gen.: She is a well-developed well-nourished female who appears in minimal distress at present time. HEENT: Head is atraumatic and normocephalic. Eyes: EOMI. There is no scleral icterus. Mouth: Mucosa is moist. Neck: Supple and nontender. There is no thyromegaly or adenopathy noted. Heart: Regular without murmurs gallops or ectopics Lungs: No wheezes or crackles are heard. Abdomen: Soft and nontender. No masses or guarding are noted. Extremities: There is no cyanosis edema or clubbing noted. Dorsalis pedis and posttibial pulses are trace palpable bilaterally. Neurologic: Mental status: She is talkative and a good historian. Cranial nerves: Smile is symmetric. Forehead wrinkles bilaterally. Tongue protrudes midline. EOMI. Motor: There is no pronator drift. Cerebellar: Finger to nose is intact bilaterally. Skin: Warm and dry. She has lesions on her dorsal hand and wrist areas that appear to possibly be psoriasis. Internal Med - H&P Results - Labs CBC & Chem 7: 05/12/17 11:20 05/12/17 11:20
[2017-05-12] MEDS ORDERED: NON-FORMULARY MEDICATION 1 EACH EACH (Insulin Glargine [Lantus] 10 UNIT) SQ SCH (15:00)
[2017-05-12] MEDS: hydrOXYzine pamoate 25 MG CAPSULE PO SCH ×2 (15:05→20:32)
[2017-05-12] MEDS: Insulin LISPRO 300 UNITS/3 ML VIAL SQ SCH (16:46)
[2017-05-12] MEDS: Ondansetron ODT 4 MG TAB.RAPDIS SL PRN (16:57)
[2017-05-12 17:06] LABS: Amphetamine Screen,Urine Negative ng/mL (Cutoff=1000); Barbiturate Screen,Urine Negative ng/mL (Cutoff=200); Benzodiazepines Screen,Urine Negative ng/mL (Cutoff=200); Cannabinoid Screen,Urine Negative ng/mL (Cutoff = 50); Cocaine Screen,Urine Negative ng/mL (Cutoff= 300); Opiate Screen,Urine Negative ng/mL (Cutoff=300); Phencyclidine Screen,Urine Negative ng/mL (Cutoff=25)
[2017-05-12] MEDS: Famotidine 20 MG/2 ML VIAL IVP SCH (18:01)
[2017-05-12] MEDS: cloNIDine HCl 0.1 MG TABLET PO SCH (20:32)
[2017-05-12] MEDS: Insulin DETEMIR 100 UNIT/ML X5UNITS SQ SCH (20:32)
[2017-05-13] MEDS: Famotidine 20 MG/2 ML VIAL IVP SCH ×2 (05:42→16:52)
[2017-05-13 07:59] LABS: Basophils % 0.3 %; Eosinophils # 0.2 K/mcL (0.0-0.6); Eosinophils % 1.4 %; Hematocrit 28.9 % (35.3-44.9); Hemoglobin 9.1 g/dL (11.5-15.4); Immature Granulocytes % 0.4 % (0-4); Lymphocytes % 14.2 %; Mean Corpuscular HGB Conc 31.5 g/dL (31.6-35.5); Mean Corpuscular Hemoglobin 28.3 pg (28.0-33.3); Mean Platelet Volume 11.6 fL (9.4-12.4); Monocytes # 0.5 K/mcL (0.0-1.3); Monocytes % 3.5 %; Neutrophils # 11.5 K/mcL (1.6-8.9); Platelet Count 106 K/mcL (140-400); Red Blood Count 3.21 M/mcL (3.82-4.97); Red Cell Distribution Width 14.3 % (11.5-14.5); Segmented Neutrophils % 80.2 %
[2017-05-13 09:06] LABS: BUN/Creatinine Ratio 12 (6-26); Blood Urea Nitrogen 11 mg/dL (7-20); Calcium 8.5 mg/dL (8.6-10.8); Carbon Dioxide 18 mEq/L (19-29); Chloride 113 mEq/L (98-109); Glucose 119 mg/dL (70-99); Osmolality,Calculated 283 (280-300); Potassium 4.6 mEq/L (3.5-4.5); Sodium 136 mEq/L (136-145); eGFR For African Americans > 60 (> 60); eGFR For Non-African Americans > 60 (> 60)
[2017-05-13 09:39] LABS: Platelet Estimate Slight Decrease (Normal)
[2017-05-13 09:40] LABS: Anisocytosis 1+ (Not Present)
[2017-05-13] MEDS: Ondansetron ODT 4 MG TAB.RAPDIS SL PRN ×2 (09:43→16:52)
[2017-05-13] MEDS: hydrOXYzine pamoate 25 MG CAPSULE PO SCH ×3 (09:46→21:33)
[2017-05-13] MEDS: cloNIDine HCl 0.1 MG TABLET PO SCH ×2 (09:46→21:32)
[2017-05-13] MEDS: Insulin LISPRO 300 UNITS/3 ML VIAL SQ SCH ×3 (09:48→16:52)
[2017-05-13 11:09] LABS: % Iron Saturation 12 % (15-50); Iron 32 mcg/dL (50-170); Transferrin 186 mg/dL (180-382)
[2017-05-13 11:31] LABS: Ferritin 104 ng/ml (5-204)
[2017-05-13 11:44] LABS: Folate 5.9 ng/mL (7.0-31.4)
--- NOTE | 2017-05-13 18:27 | Internal Med Progress Note ---
Date of Encounter: 05/13/17 Time of Encounter: 18:20 - Assessment and plan (1) Vomiting Current Visit: Yes Status: Acute Assessment and plan: May 13. Leukocytosis has significantly improved. We will decrease rate of IV fluids. Continue present treatment otherwise. Anticipate discharge home tomorrow if stable. Qualifiers: Vomiting type: bilious vomiting Nausea presence: with nausea Qualified Code(s): R11.14 - Bilious vomiting (2) Azotemia Current Visit: Yes Status: Acute Assessment and plan: May 13. Resolved. We will decrease IV fluids. (3) Anemia Current Visit: Yes Status: Acute Assessment and plan: May 13. Anemia testing showed iron 32, transferrin saturation 12%, transferrin 186, ferritin 104, B12 556, and folate 5.9. Will start ferrous sulfate with vitamin C and folic acid replacement. Qualifiers: Anemia type: unspecified type Qualified Code(s): D64.9 - Anemia, unspecified (4) Leukocytosis Current Visit: No Status: Acute Assessment and plan: May 13. Significantly improved. Continue present regimen. Recheck labs in a.m. Qualifiers: Leukocytosis type: unspecified Qualified Code(s): D72.829 - Elevated white blood cell count, unspecified - Subjective Interval history: May 13. She denies further vomiting. She reports very poor appetite. She feels better overall. - Constitutional Vitals: Temp Pulse Resp BP Pulse Ox 99.3 F 105 18 154/70 94 05/13/17 14:31 05/13/17 14:31 05/13/17 14:31 05/13/17 14:31 05/13/17 14:31 Exam: She is resting comfortably in bed and appears in no acute distress. Her affect is bright and cheerful. I reviewed her medications and lab results. Internal Medicine: Result - Labs CBC & Chem 7: 05/13/17 07:48 05/13/17 07:48 Labs: Short CBC 05/13/17 Range/Units 07:48 WBC 14.3 H (4.3-11.1) K/mcL Hgb 9.1 L (11.5-15.4) g/dL Hct 28.9 L (35.3-44.9) % Plt Count 106 L (140-400) K/mcL Neutrophils # 11.5 H (1.6-8.9) K/mcL [facility] 05/13/17 07:48 Sodium 136 Potassium 4.6 H Chloride 113 H Carbon Dioxide 18 L BUN 11 Creatinine 0.93 Glucose 119 H Calcium 8.5 L Consult Discharge Plan - Plan Referrals: Pipo Roberts, SENIOR CORPORATE ACCOUNTANT [Primary Care Provider] -
[2017-05-13] MEDS ORDERED: Insulin DETEMIR 100 UNIT/ML per UNIT SQ ONE (21:02)
[2017-05-13] MEDS: Gabapentin 300 MG CAPSULE PO SCH (21:32)
[2017-05-13] MEDS: Melatonin 3 MG TABLET PO SCH (21:32)
[2017-05-14] MEDS: Insulin DETEMIR 100 UNIT/ML X5UNITS SQ SCH ×2 (02:59→21:05)
[2017-05-14] MEDS: Ascorbic Acid 500 MG TABLET PO SCH (06:30)
[2017-05-14] MEDS: Famotidine 20 MG/2 ML VIAL IVP SCH (06:30)
[2017-05-14] MEDS: Ondansetron ODT 4 MG TAB.RAPDIS SL PRN (06:30)
[2017-05-14 07:52] LABS: Basophils % 0.4 %; Eosinophils # 0.2 K/mcL (0.0-0.6); Eosinophils % 2.2 %; Hematocrit 31.9 % (35.3-44.9); Hemoglobin 9.7 g/dL (11.5-15.4); Immature Granulocytes % 0.3 % (0-4); Lymphocytes % 19.7 %; Mean Corpuscular HGB Conc 30.4 g/dL (31.6-35.5); Mean Corpuscular Hemoglobin 28.1 pg (28.0-33.3); Mean Corpuscular Volume 92.5 fL (83.0-100.0); Mean Platelet Volume 11.9 fL (9.4-12.4); Monocytes # 0.5 K/mcL (0.0-1.3); Monocytes % 4.9 %; Neutrophils # 7.5 K/mcL (1.6-8.9); Platelet Count 118 K/mcL (140-400); Red Blood Count 3.45 M/mcL (3.82-4.97); Red Cell Distribution Width 13.9 % (11.5-14.5); Segmented Neutrophils % 72.5 %
[2017-05-14] MEDS: hydrOXYzine pamoate 25 MG CAPSULE PO SCH ×3 (08:19→20:57)
[2017-05-14] MEDS: Gabapentin 300 MG CAPSULE PO SCH ×3 (08:19→20:57)
[2017-05-14] MEDS: cloNIDine HCl 0.1 MG TABLET PO SCH ×2 (08:19→20:57)
[2017-05-14] MEDS: Folic Acid 1 MG TABLET PO SCH (08:19)
[2017-05-14] MEDS: Insulin LISPRO 300 UNITS/3 ML VIAL SQ SCH ×3 (08:20→17:16)
[2017-05-14 08:38] LABS: BUN/Creatinine Ratio 11 (6-26); Blood Urea Nitrogen 10 mg/dL (7-20); Calcium 8.9 mg/dL (8.6-10.8); Carbon Dioxide 16 mEq/L (19-29); Chloride 111 mEq/L (98-109); Glucose 95 mg/dL (70-99); Magnesium 1.1 mg/dL (1.6-2.6); Osmolality,Calculated 283 (280-300); Potassium 4.6 mEq/L (3.5-4.5); Sodium 137 mEq/L (136-145); eGFR For African Americans > 60 (> 60); eGFR For Non-African Americans > 60 (> 60)
--- NOTE | 2017-05-14 10:47 | Internal Med Progress Note ---
Date of Encounter: 05/14/17 Time of Encounter: 10:30 - Assessment and plan (1) Vomiting Current Visit: Yes Status: Acute Assessment and plan: May 13. Leukocytosis has significantly improved. We will decrease rate of IV fluids. Continue present treatment otherwise. Anticipate discharge home tomorrow if stable. May 14. Remains resolved but she does not feel improved sufficiently to be discharged. Qualifiers: Vomiting type: bilious vomiting Nausea presence: with nausea Qualified Code(s): R11.14 - Bilious vomiting (2) Azotemia Current Visit: Yes Status: Acute Assessment and plan: May 13. Resolved. We will decrease IV fluids. (3) Anemia Current Visit: Yes Status: Acute Assessment and plan: May 13. Anemia testing showed iron 32, transferrin saturation 12%, transferrin 186, ferritin 104, B12 556, and folate 5.9. Will start ferrous sulfate with vitamin C and folic acid replacement. Qualifiers: Anemia type: unspecified type Qualified Code(s): D64.9 - Anemia, unspecified (4) Leukocytosis Current Visit: No Status: Acute Assessment and plan: May 13. Significantly improved. Continue present regimen. Recheck labs in a.m. May 14. Resolved. Qualifiers: Leukocytosis type: unspecified Qualified Code(s): D72.829 - Elevated white blood cell count, unspecified (5) Hypomagnesemia Current Visit: Yes Status: Acute Assessment and plan: May 14. Will give IV magnesium sulfate and recheck labs in a.m. - Subjective Interval history: May 13. She denies further vomiting. She reports very poor appetite. She feels better overall. May 14. She denies vomiting or pain. She still has dyspnea and poor appetite overall. - Constitutional Vitals: Temp Pulse Resp BP Pulse Ox 99.1 F 100 28 149/79 93 05/14/17 06:20 05/14/17 06:20 05/14/17 06:20 05/14/17 06:20 05/14/17 06:20 Exam: She is resting in bed wearing oxygen. Her affect is cheerful. I reviewed her medications and lab results. Internal Medicine: Result - Labs CBC & Chem 7: 05/14/17 07:35 05/14/17 07:35 Labs: Short CBC 05/14/17 Range/Units 07:35 WBC 10.3 (4.3-11.1) K/mcL Hgb 9.7 L (11.5-15.4) g/dL Hct 31.9 L (35.3-44.9) % Plt Count 118 L (140-400) K/mcL Neutrophils # 7.5 (1.6-8.9) K/mcL [facility] 05/14/17 07:35 Sodium 137 Potassium 4.6 H Chloride 111 H Carbon Dioxide 16 L BUN 10 Creatinine 0.87 Glucose 95 Calcium 8.9 Consult Discharge Plan - Plan Referrals: Pipo Roberts, [employer] [Primary Care Provider] -
[2017-05-14] MEDS ORDERED: Magnesium Sulfate 1 GM in D5% in Water 100 ML IVPB ONE (10:51)
[2017-05-14] MEDS: Melatonin 3 MG TABLET PO SCH (20:57)
[2017-05-15] MEDS: Ascorbic Acid 500 MG TABLET PO SCH (06:42)
[2017-05-15 07:11] VITALS: BP 125/73
[2017-05-15 08:05] LABS: VBG HCO3 23 mEq/L (21-27); VBG PCO2 46 mmHg (41-51); VBG PH 7.31 pH Units (7.32-7.42); VBG PO2 59 mmHg (25-50)
[2017-05-15] MEDS: Insulin LISPRO 300 UNITS/3 ML VIAL SQ SCH (09:30)
[2017-05-15] MEDS: Folic Acid 1 MG TABLET PO SCH (09:31)
[2017-05-15] MEDS: hydrOXYzine pamoate 25 MG CAPSULE PO SCH (09:31)
[2017-05-15] MEDS: cloNIDine HCl 0.1 MG TABLET PO SCH (09:31)
[2017-05-15] MEDS: Gabapentin 300 MG CAPSULE PO SCH (09:31)
--- NOTE | 2017-05-15 10:29 | Discharge Summary ---
Date of Encounter: 05/15/17 Time of Encounter: 10:20 - Discharge Diagnosis (1) Vomiting Priority: Primary Status: Resolved Qualifiers: Vomiting type: bilious vomiting Nausea presence: with nausea Qualified Code(s): R11.14 - Bilious vomiting (2) Azotemia Priority: Secondary Status: Resolved (3) Anemia Priority: Secondary Status: Acute Qualifiers: Anemia type: unspecified type Qualified Code(s): D64.9 - Anemia, unspecified (4) Leukocytosis Priority: Secondary Status: Resolved Qualifiers: Leukocytosis type: unspecified Qualified Code(s): D72.829 - Elevated white blood cell count, unspecified (5) Hypomagnesemia Priority: Secondary Status: Resolved (6) COPD with hypoxia Priority: Secondary Status: Chronic - Discharge Medications Prescriptions: Ascorbic Acid [Vitamin C] 500 mg PO DAILY@0630 #30 tablet Ferrous Sulfate 325 mg PO DAILY@0630 #30 tablet Home Medications: Insulin Glargine,Hum.rec.anlog [Lantus Solostar] 20 unit SQ HS #0 03/05/15 [ History] Insulin ASPART [NovoLOG] 0 unit SQ TIDAC PRN 08/17/16 [History] CloNIDine HCl [Kapvay] 0.1 mg PO BID 08/19/16 [History] Lisinopril [Zestril] 30 mg PO DAILY 10/19/16 [History] Omeprazole 20 mg PO DAILY 11/04/16 [History] Gabapentin [Neurontin] 600 mg PO TID 04/16/17 [History] HydrOXYzine Pamoate [Vistaril] 50 mg PO TID 04/16/17 [History] Insulin Glargine [Lantus] 10 unit SQ TID 05/12/17 [History] Naltrexone Microspheres [Vivitrol] 380 mg IM QMONTH 05/12/17 [History] Promethazine [Phenergan] 12.5 mg PO Q6H PRN 05/12/17 [History] Ascorbic Acid [Vitamin C] 500 mg PO DAILY@0630 #30 tablet 05/15/17 [Rx] Ferrous Sulfate 325 mg PO DAILY@0630 #30 tablet 05/15/17 [Rx] Allergies/Adverse Reactions: 3 Allergy/AdvReac Type Severity Reaction Status Date / Time Amoxicillin Allergy See Verified 05/12/17 10:47 Comments codeine Allergy Hives Verified 05/12/17 10:47 hydrocodone Allergy Rash Verified 05/12/17 10:47 ibuprofen Allergy Rash Verified 05/12/17 10:47 tramadol AdvReac Anxiety Verified 05/12/17 10:47 Date of admission: 05/12/17 13:10 Primary care physician: Pipo Roberts CNP Consults: 05/12/17 13:43 Consult to Nutrition [CONS] Routine Comment: States lost 20 pouns without trying Consulting Provider: NUTRITION Reason for Dietary Consult: MST Score - Patient Status Disposition: Home, Self-Care Condition: Fair Functional capacity at discharge: independent ambulation Overall status at discharge: patient is progressing back to baseline - Discharge Instructions Follow Up With: Pipo Roberts CNP [Primary Care Provider] - 05/18/17 10:30 am (Pt to be seen 05/18/2017 @ 10:30AM with Dr. Roberts) - Diet and Activity Activity: resume usual activities as tolerated, wear oxygen at all times Diet: diabetic diet Hospital course: Ms. Pappas is a 36 year old female who came to the emergency room stating she awakened 0600 the day of admission and had onset of vomiting. She reports she vomited green bilous material approximately 6 times prior to coming to the hospital. She denies hematemesis. She denies abdominal pain or diarrhea. She came to emergency room and was evaluated and found to have leukocytosis with left shift on the differential. She was admitted to [facility] floor for ongoing care needs. Initial orders were written by the emergency room physician. I saw her on May 12 and performed the history and physical. She was given IV fluids and prn antiemetics. She had gradual improvement with resolution of leukocytosis and left shift. Her vomiting subsided after the first hospital day. Magnesium level returned low at 1.1. She was given 1 g of magnesium sulfate IV and her magnesium level was normal the day of discharge at 1.6. Her azotemia resolved with creatinine decreasing to 0.87 the day prior to discharge. Room air oximetry done on the day of discharge showed saturation decreasing to 86% during 6 minute walk. She became dyspneic and required immediate reinstitution of oxygen for safety and symptomatic relief. She will be prescribed oxygen at 2 L/m by nasal cannula 20/02 with portable gas and concentrator at home. I encouraged her to become a nonsmoker. Discharge diagnosis is COPD with hypoxemia. She will follow with her PCP Pipo Roberts CNP within 1 week. - Time Spent with Patient Total time spent providing and/or coordinating discharge services: - Constitutional Vitals: Temp Pulse Resp BP Pulse Ox 98.7 F 89 17 125/73 94 05/15/17 07:11 05/15/17 07:11 05/15/17 07:11 05/15/17 07:11 05/15/17 07:11
== END 2017-05-15 12:45 | disposition home or self-care (01) ==
LOC: INPPIK 10:45 → EMEROOPIK 10:45 → INPPIK 13:28
PROVIDERS: ADMIT Internal Medicine; ATTEND Internal Medicine

== ENCOUNTER 2018-09-12 20:49 | Observation (INO) ==
[2018-09-12] MEDS ORDERED: 0.9 % Sodium Chloride 1,000 ML IVC ONE (21:05)
[2018-09-12] MEDS ORDERED: Piperacillin/Tazobactam 3.375 GM in 0.9 % Sodium Chloride Mini Bag 100 ML IVPB ONE (21:05)
[2018-09-12] MEDS ORDERED: Ondansetron 4 MG/2 ML VIAL IVP ONE (21:06)
--- NOTE | 2018-09-12 21:06 | Emergency Department Note ---
Disposition Clinical Impression: Cellulitis, UTI (urinary tract infection) Disposition: Home, Self-Care Condition: Good Time of Disposition: 00:37 Lower Extremity Injury HPI - General Chief Complaint: ED Extremity Injury, Lower Stated Complaint: Left foot diabetic ulcer Time Seen by Provider: 09/12/18 21:06 Source: patient Mode of arrival: ambulatory Limitations: no limitations Nursing Notes Reviewed: Yes Vital Signs Reviewed: Yes - History of Present Illness HPI Narrative: 38-year-old female presents today with left foot abscess swelling and drainage. She states been like this for about 2 weeks gotten worse and last couple of days. She claims that she scratched it and I hot tub a few weeks ago and then she is got worse. She is a history of diabetes and IV drug use was states she has not used recently. She states that she has had some fevers and vomiting with this now. She states that she has not called her primary care physician about it. She states that her sugars are running high but that she has not checked them very often. Pt Subjective Complaint: foot injury - Related Data Home Medications Medication Instructions Recorded Confirmed Insulin Regular, Human [Novolin R] 10 unit SQ TIDWM 07/26/17 09/12/18 Insulin Glargine,Hum.rec.anlog 25 unit SQ HS 05/07/18 09/12/18 [Basaglar Kwikpen U-100] Buprenorphine HCl/Naloxone HCl 1 each SL DAILY 09/12/18 09/12/18 [Suboxone 8 mg-2 mg Sl Film] Allergies Allergy/AdvReac Type Severity Reaction Status Date / Time Amoxicillin Allergy See Verified 09/12/18 21:09 Comments codeine Allergy Hives Verified 09/12/18 21:09 hydrocodone Allergy Rash Verified 09/12/18 21:09 tramadol AdvReac Anxiety Verified 09/12/18 21:09 Review of Systems: All other systems are negative except as noted/marked Chart generated with voice recognition software Nursing notes reviewed Old records reviewed Past Medical History - Past Medical History Attestation: Yes The following information was validated with the patient. 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: bilateral tubal ligation - Social History Smoking Status: Current every day smoker Smokeless Tobacco Status: No Alcohol use: Reports: none Drug use: Reports: IV Drug Use, prescription drug abuse, other Physical Exam - General Limitations: no limitations General appearance: alert, in no apparent distress - Head Head exam: atraumatic, normocephalic, normal inspection - Eye Eye exam: Present: normal appearance, PERRL, EOMI - ENT ENT exam: normal exam, normal oropharynx, mucous membranes moist - Neck Neck exam: Present: normal inspection, full ROM, trachea midline - Chest Chest inspection: Present: normal inspection, symmetric chest wall rise - Respiratory Respiratory exam: Present: normal lung sounds bilaterally - Cardiovascular Cardiovascular exam: Present: normal rhythm, tachycardia, normal heart sounds - Abdominal Exam Abdominal exam: Present: soft, Non-Tender, normal bowel sounds. Absent: tenderness, distention, guarding, rebound, rigidity - Expanded Lower Extremity Exam Hip/Pelvis exam: Present: normal inspection, full ROM Upper leg exam: Present: normal inspection, full ROM Knee exam: Present: normal inspection, full ROM Lower leg exam: Present: normal inspection, full ROM Ankle exam: Present: normal inspection, full ROM 1 - large area of cellulitis with eschar and purulent drainage, blistering Neurovascular/Tendon exam: Present: normal capillary refill, normal 2-point discrimination, normal fine/light touch. Absent: pulse deficit, motor deficit, sensory deficit, foot drop - Neurological Exam Neurological exam: Present: alert, oriented X3 - Psychiatric Psychiatric exam: Present: anxious - Skin Skin exam: Present: warm (other than foot exam above), dry, intact, normal color Course Vital Signs Temperature 98.2 F 09/12/18 20:53 Pulse Rate 95 09/12/18 20:53 Respiratory Rate 16 09/12/18 20:53 Blood Pressure 158/78 09/12/18 20:53 O2 Sat by Pulse Oximetry 98 09/12/18 20:53 Temperature 98.2 F 09/12/18 20:53 Pulse Rate 95 09/12/18 20:53 Respiratory Rate 16 09/12/18 20:53 Blood Pressure 158/78 09/12/18 20:53 O2 Sat by Pulse Oximetry 98 09/12/18 20:53 Oxygen Delivery Oxygen Delivery Room Air Procedures - IO Right Tibia Consent Obtained: verbal consent Time Out Performed: Yes Local Anesthetic: lidocaine 1% Amount of anesthesic used (mL): 2 IO Instrument Used to Penetrate the Cortex: battery powered IO drill Patient Tolerated Procedure: no complications, other (Patient had pain) Extremity Injury, Lower - MDM Narrative Medical decision making narrative: 38-year-old female who presents today with cellulitis to the left foot and a UTI. She is a very difficult stick she has years of IV drug abuse in the past. Most of her IV sites are unable to be accessed at this point. We did get an EJ and I was unable to get that. We looked with ultrasound for an IJ or femoral line. We attempted the IJ first we numbed up the area over prepping the ago and the patient would not tolerate laying with her head down at all. She started throwing up repeatedly. We aborted this and went to a right femoral. Patient was adamant that she is never shot up in her groin however a hit much resistance when I was trying to feed the catheter will require into the femoral vein. She did not tolerate this and so he stopped that. We then placed an IO in her right tibia. She tolerated this poorly initially but after lidocaine tolerated this better. We were then able to start IV antibiotics and IV fluids. I did update Dr. Wahl that she did not get a central line but she did get an IO. He was okay with this. Patient's x-ray did not reveal any evidence of osteomyelitis. Patient is a very poor diabetic and poor control of her many comorbidities. I stressed the importance of taking better care of herself. - Medical Records Medical records reviewed: Yes I reviewed the patient's medical records. - Lab Data Lab results reviewed: Yes I reviewed the patient's lab results. Result diagrams: 09/12/18 21:45 09/12/18 21:45 Lab Results 09/12/18 09/12/18 09/12/18 Range/Units 20:54 21:45 21:45 WBC 13.7 H (4.3-11.1) K/mcL RBC 3.96 (3.82-4.97) M/mcL Hgb 11.6 (11.5-15.4) g/dL Hct 36.5 (35.3-44.9) % MCV 92.2 (83.0-100.0) fL MCH 29.3 (28.0-33.3) pg MCHC 31.8 (31.6-35.5) g/dL RDW 13.5 (11.5-14.5) % Plt Count 200 (140-400) K/mcL MPV 11.3 (9.4-12.4) fL Immature Gran % 0.9 (0-4) % Seg Neutrophils % 87.4 % Lymphocytes % 8.3 % Monocytes % 2.1 % Eosinophils % 0.9 % Basophils % 0.4 % Neutrophils # 12.0 H (1.6-8.9) K/mcL Lymphocytes # 1.1 (0.6-4.6) K/mcL Monocytes # 0.3 (0.0-1.3) K/mcL Eosinophils # 0.1 (0.0-0.6) K/mcL Basophils # 0.1 (0.0-0.2) K/mcL Platelet Estimate Normal (Normal) Sodium 132 L (136-145) mEq/L Potassium 5.0 (3.5-5.1) mEq/L Chloride 108 H (98-107) mEq/L Carbon Dioxide 12 L (23-29) mEq/L BUN 24 H (6-20) mg/dL Creatinine 1.27 H (0.60-1.20) mg/dL Est GFR ( Amer) 56 L (> 60) Est GFR (Non-Af Amer) 47 L (> 60) BUN/Creatinine Ratio 19 (6-26) Glucose 205 H (70-105) mg/dL POC Glucose 204 H (70-99) mg/dL Calculated Osmolality 284 (280-300) Lactic Acid (0.5-2.2) mmol/L Calcium 9.7 (8.6-10.3) mg/dL Magnesium 1.7 (1.6-2.6) mg/dL Urine Color (Yellow) Urine Clarity (Clear) Urine pH (5.0-8.0) pH Units Ur Specific [place] (1.010-1.025) Urine Protein (Neg-Trace) mg/dL Urine Glucose (UA) (Normal) mg/dL Urine Ketones (Negative) mg/dL Urine Blood (Negative) Urine Nitrite (Negative) Urine Bilirubin (Negative) Urine Urobilinogen (Normal) mg/dL Ur Leukocyte Esterase (Negative) Urine Microscopic RBC (0-3) per hpf Ur Squamous Epith Cells (None-Few) per lpf Ur Culture Indicated? (NO) Urine Opiates Screen (Kkfgpu=087) ng/mL Ur Oxycodone Screen (Cutoff= 100) ng/mL Ur Barbiturates Screen (Zijqsl=404) ng/mL Ur Phencyclidine Scrn (Cutoff=25) ng/mL Ur Amphetamines Screen (Rzarry=9137) ng/mL U Benzodiazepines Scrn (Dsdktu=661) ng/mL Urine Cocaine Screen (Cutoff= 300) ng/mL U Marijuana (THC) Screen (Cutoff = 50) ng/mL Ur Drug Screen Interp 09/12/18 09/12/18 09/12/18 Range/Units 21:45 22:35 22:35 WBC (4.3-11.1) K/mcL RBC (3.82-4.97) M/mcL Hgb (11.5-15.4) g/dL Hct (35.3-44.9) % MCV (83.0-100.0) fL MCH (28.0-33.3) pg MCHC (31.6-35.5) g/dL RDW (11.5-14.5) % Plt Count (140-400) K/mcL MPV (9.4-12.4) fL Immature Gran % (0-4) % Seg Neutrophils % % Lymphocytes % % Monocytes % % Eosinophils % % Basophils % % Neutrophils # (1.6-8.9) K/mcL Lymphocytes # (0.6-4.6) K/mcL Monocytes # (0.0-1.3) K/mcL Eosinophils # (0.0-0.6) K/mcL Basophils # (0.0-0.2) K/mcL Platelet Estimate (Normal) Sodium (136-145) mEq/L Potassium (3.5-5.1) mEq/L Chloride (98-107) mEq/L Carbon Dioxide (23-29) mEq/L BUN (6-20) mg/dL Creatinine (0.60-1.20) mg/dL Est GFR ( Amer) (> 60) Est GFR (Non-Af Amer) (> 60) BUN/Creatinine Ratio (6-26) Glucose (70-105) mg/dL POC Glucose (70-99) mg/dL Calculated Osmolality (280-300) Lactic Acid 0.5 (0.5-2.2) mmol/L Calcium (8.6-10.3) mg/dL Magnesium (1.6-2.6) mg/dL Urine Color [place] A (Yellow) Urine Clarity Cloudy A (Clear) Urine pH 5.5 (5.0-8.0) pH Units Ur Specific [place] 1.020 (1.010-1.025) Urine Protein >=300 H (Neg-Trace) mg/dL Urine Glucose (UA) 100 H (Normal) mg/dL Urine Ketones 40 H (Negative) mg/dL Urine Blood Large H (Negative) Urine Nitrite Positive A (Negative) Urine Bilirubin Small H (Negative) Urine Urobilinogen Normal (Normal) mg/dL Ur Leukocyte Esterase Negative (Negative) Urine Microscopic RBC TNTC H (0-3) per hpf Ur Squamous Epith Cells Few (None-Few) per lpf Ur Culture Indicated? YES A (NO) Urine Opiates Screen Negative (Kroidl=558) ng/mL Ur Oxycodone Screen Negative (Cutoff= 100) ng/mL Ur Barbiturates Screen Negative (Cpzuil=318) ng/mL Ur Phencyclidine Scrn Negative (Cutoff=25) ng/mL Ur Amphetamines Screen Negative (Adediz=3800) ng/mL U Benzodiazepines Scrn Negative (Jsghgy=655) ng/mL Urine Cocaine Screen Negative (Cutoff= 300) ng/mL U Marijuana (THC) Screen Negative (Cutoff = 50) ng/mL Ur Drug Screen Interp See Below - Radiology Data Radiology results reviewed: Yes I reviewed the patient's radiology results. EXAMINATION: 3 XRAY VIEWS OF THE LEFT FOOT 09/12/2018 9:23 pm COMPARISON: 12/05/2017 HISTORY: ORDERING SYSTEM PROVIDED HISTORY: osteomyelitis FINDINGS: Anatomic alignment. No fractures. Stable irregularity of the 1st distal phalanx distally. No acute erosive changes identified. XR/XR foot 3V LT IMPRESSION: No acute bony or joint abnormality D/ / Pb Cat MD / Pb Cat MD Interpreting Provider: Pb Cat MD Critical Care Time Critical Care Time: Yes Total Critical Care Time: 120 Attestation: The high probability of a clinically significant, sudden or life threatening deterioration of the [integumentary, endocrine] system(s) required my full and direct attention, intervention and personal management. The aggregate critical care time was [120] minutes. This time is in addition to time spent performing reported procedures but includes the following: [x] Data Review and interpretation [x] Patient assessment and monitoring of vital signs [x] Documentation [x] Medication orders and management
[2018-09-12 21:51] LABS: Basophils # 0.1 K/mcL (0.0-0.2); Basophils % 0.4 %; Eosinophils # 0.1 K/mcL (0.0-0.6); Eosinophils % 0.9 %; Hematocrit 36.5 % (35.3-44.9); Hemoglobin 11.6 g/dL (11.5-15.4); Immature Granulocytes % 0.9 % (0-4); Lymphocytes # 1.1 K/mcL (0.6-4.6); Lymphocytes % 8.3 %; Mean Corpuscular HGB Conc 31.8 g/dL (31.6-35.5); Mean Corpuscular Hemoglobin 29.3 pg (28.0-33.3); Mean Corpuscular Volume 92.2 fL (83.0-100.0); Mean Platelet Volume 11.3 fL (9.4-12.4); Monocytes # 0.3 K/mcL (0.0-1.3); Monocytes % 2.1 %; Platelet Count 200 K/mcL (140-400); Red Blood Count 3.96 M/mcL (3.82-4.97); Red Cell Distribution Width 13.5 % (11.5-14.5); Segmented Neutrophils % 87.4 %
[2018-09-12 22:01] LABS: Platelet Estimate Normal (Normal)
[2018-09-12 22:11] LABS: Calcium 9.7 mg/dL (8.6-10.3); Magnesium 1.7 mg/dL (1.6-2.6)
[2018-09-12 22:49] LABS: Bilirubin,Urine Small (Negative); Blood,Urine Large (Negative); Clarity,Urine Cloudy (Clear); Color,Urine Amber (Yellow); Glucose,Urine (UA) 100 mg/dL (Normal); Ketones,Urine 40 mg/dL (Negative); Leukocyte Esterase,Urine Negative (Negative); Nitrite,Urine Positive (Negative); PH,Urine 5.5 pH Units (5.0-8.0); Protein,Urine >=300 mg/dL (Neg-Trace); Urobilinogen,Urine Normal (Normal)
[2018-09-12 23:03] LABS: RBC,Urine TNTC per hpf (0-3); Squamous Epithelial Cell,Urine Few per lpf (None-Few)
[2018-09-12 23:12] LABS: Amphetamine Screen,Urine Negative ng/mL (Cutoff=1000); Barbiturate Screen,Urine Negative ng/mL (Cutoff=200); Benzodiazepines Screen,Urine Negative ng/mL (Cutoff=200); Cannabinoid Screen,Urine Negative ng/mL (Cutoff = 50); Cocaine Screen,Urine Negative ng/mL (Cutoff= 300); Opiate Screen,Urine Negative ng/mL (Cutoff=300); Phencyclidine Screen,Urine Negative ng/mL (Cutoff=25)
[2018-09-12] MEDS ORDERED: Lidocaine 1% 20 ML MDV INFILT ONE (23:34)
[2018-09-12] MEDS ORDERED: Lidocaine -MPF 1% 2 ML VIAL ONE (23:42)
[2018-09-13] MEDS ORDERED: Ondansetron ODT 4 MG TAB.RAPDIS SL ONE (00:08)
[2018-09-13] MEDS ORDERED: Ondansetron 4 MG/2 ML VIAL ONE ×2 (01:14→02:30)
[2018-09-13] MEDS ORDERED: Lidocaine 2% Syringe 100 MG/5 ML ONE (01:16)
[2018-09-13] MEDS ORDERED: Naloxone 0.4 MG/ML INJ IVP PRN (02:30)
[2018-09-13] MEDS ORDERED: *HR* Promethazine 25 MG/ML VIAL IVP PRN (02:30)
[2018-09-13] MEDS ORDERED: 0.9 % Sodium Chloride 1,000 ML IVC SCH (02:30)
[2018-09-13] MEDS ORDERED: Acetaminophen 325 MG TABLET PO PRN (02:30)
[2018-09-13] MEDS ORDERED: Ibuprofen 400 MG TABLET PO PRN (02:30)
[2018-09-13 08:53] LABS: Basophils % 0.2 %; Eosinophils # 0.1 K/mcL (0.0-0.6); Eosinophils % 0.5 %; Hematocrit 33.7 % (35.3-44.9); Hemoglobin 10.8 g/dL (11.5-15.4); Immature Granulocytes % 0.5 % (0-4); Lymphocytes % 11.1 %; Mean Corpuscular Hemoglobin 29.1 pg (28.0-33.3); Mean Corpuscular Volume 90.8 fL (83.0-100.0); Monocytes # 0.4 K/mcL (0.0-1.3); Monocytes % 2.8 %; Platelet Count 241 K/mcL (140-400); Red Blood Count 3.71 M/mcL (3.82-4.97); Red Cell Distribution Width 13.6 % (11.5-14.5); Segmented Neutrophils % 84.9 %
[2018-09-13] MEDS: Insulin LISPRO 300 UNITS/3 ML VIAL SQ SCH ×3 (09:18→17:26)
[2018-09-13 09:59] LABS: Lymphocytes # 1.4 K/mcL (0.6-4.6)
[2018-09-13 10:16] LABS: Calcium 9.2 mg/dL (8.6-10.3); Potassium 4.9 mEq/L (3.5-5.1)
[2018-09-13 11:05] LABS: Platelet Estimate Normal (Normal)
[2018-09-13 11:10] LABS: ABG Base Excess -12 mEq/L (-2 to 3); ABG HCO3 14 mEq/L (21-27); ABG Oxygen Saturation 62 % (95-98); ABG PCO2 28 mmHg (35-45); ABG PH 7.29 pH Units (7.32-7.45); ABG PO2 35 mmHg (85-104); ABG TCO2 15 mEq/L (20-26)
[2018-09-13] MEDS ORDERED: *HR* Promethazine 25 MG/ML VIAL IM PRN (14:48)
--- NOTE | 2018-09-13 15:04 | Internal Med History&Physical ---
Date of Encounter: 09/13/18 Time of Encounter: 14:40 Assessment and Plan (1) Anemia Current visit: No Status: Chronic Qualifiers: Chronic kidney disease stage: unspecified stage Qualified Code(s): N18.9 - Chronic kidney disease, unspecified; D63.1 - Anemia in chronic kidney disease (2) DKA (diabetic ketoacidoses) Current visit: No Status: Resolved Qualifiers: Diabetes mellitus type: type 1 Diabetes mellitus complication detail: without coma Qualified Code(s): E10.10 - Type 1 diabetes mellitus with ketoacidosis without coma (3) Hypertension Current visit: No Status: Acute Qualifiers: Hypertension type: essential hypertension Qualified Code(s): I10 - Essential (primary) hypertension (4) DKA (diabetic ketoacidoses) Current visit: No Status: Resolved She has been started on IV fluids with Accu-Cheks and SSI. Blood sugars will be monitored. Qualifiers: Diabetes mellitus type: type 2 Diabetes mellitus complication detail: without coma Qualified Code(s): E11.10 - Type 2 diabetes mellitus with ketoacidosis without coma (5) Cellulitis Current visit: Yes Status: Acute She was ordered vancomycin and Zosyn in emergency room. IV access could not be obtained peripherally or centrally so IO access has been used. Qualifiers: Site of cellulitis: extremity Site of cellulitis of extremity: lower extremity Laterality: left Qualified Code(s): L03.116 - Cellulitis of left lower limb Internal Medicine - H&P: HPI Chief complaint: Left foot infection Admitted From: Emergency Dept Plans for Post Hospital Care: Home History of present illness: Ms. aPppas is a 38 year old female who came to emergency room stating she had worsening infection of the distal dorsal left foot following a scrape on the foot from her hot tub approximately 2 weeks ago. She did not seek medical attention despite increasing redness. She states 4-5 days ago she had episodes of vomiting without hematemesis. She began having fevers and chills 3-4 days ago. She denies cough dyspnea or pain other than in the foot. She was evaluated in emergency room and was found to have leukocytosis with left shift and significant cellulitis changes with eschar on the distal dorsal left foot. She was admitted to [facility] floor for ongoing care needs. Past Med Surg Social Fam HX - Past Medical History Medical history: arthritis, asthma, cirrhosis, CHF, diabetes, GERD, GI bleed, hepatitis, hyperlipidemia, hypertension, migraine, SVT Additional medical history: psoriasis Psychiatric history: anxiety, ADHD, bipolar, depression, panic disorder, prior suicide attempt, previous psychiatric hospitalization, other - Past Surgical History Surgical History: appendectomy, , orthopedic, other (Ankle surgery), RAFAEL/BSO Additional surgical history: ORIF RT ANKLE, RT KNEE SURG. surg to abscess (MRSA) - Social History Smoking Status: Current every day smoker Smokeless Tobacco Status: No Alcohol use: none Drug use: IV Drug Use, prescription drug abuse, other - Family History Mother Adopted: No Family Member Ethnicity: Non- Living Status: Still Living Hx Family Cardiac Disorders: Yes Hx Family Respiratory Disorders: Yes Hx Family Cancer: Yes Hx Family GI Disorders: Yes Hx Family Endocrine Disorder: Yes Hx Family Neuromuscular Disorders: No Hx Family Neurologic Disorders: No Hx Family HEENT Disorders: No Hx Family Autoimmune Disorders: No Internal Medicine - H&P: Meds Insulin Regular, Human [Novolin R] 10 unit SQ TIDWM 07/26/17 [History] Insulin Glargine,Hum.rec.anlog [Basaglar Kwikpen U-100] 25 unit SQ HS 05/07/18 [History] Buprenorphine HCl/Naloxone HCl [Suboxone 8 mg-2 mg Sl Film] 1 each SL DAILY 09/12/18 [History] Allergy/AdvReac Type Severity Reaction Status Date / Time Amoxicillin Allergy See Verified 09/12/18 21:09 Comments codeine Allergy Hives Verified 09/12/18 21:09 hydrocodone Allergy Rash Verified 09/12/18 21:09 tramadol AdvReac Anxiety Verified 09/12/18 21:09 All Systems PM: A 10-system review of systems was performed and is negative for pertinent findings except as documented above in the HPI. Review of systems: Review of systems from her June 2017 [facility] hospitalization were reviewed and revised as below. Gen.: Her weight has decreased from 76.657 kg on 07/03/2017 to 61.689 kg today Cardiovascular: She has history of hypertension. She reports she has been diagn osed with CHF. An echocardiogram 01/01/2018 showed LVEF of 65-70%. The interventricular septum and posterior wall thickness measurements were 0.80 cm respectively. E/A ratio is 1.1. Aortic insufficiency pressure half time is 448 ms. A questionable valve vegetation was not confirmed to be present on ANSLEY done 01/04/2018. She has occasional sinus tachycardia. She denies DVT or pulmonary embolus. Respiratory: She has smoked cigarettes since age 8 up to 2 packs per day. She has been diagnosed with chronic bronchitis. She was found to have hypoxemia at discharge April 2017 and was prescribed home oxygen. He states that was removed from the home because of noncompliance in usage. GI: She was diagnosed with hepatitis C 2008 but she has not received treatment. She had a gallstone in the past but has not had cholecystectomy. She denies disorders of her exocrine pancreas. She has GERD. : She denies hematuria dysuria or kidney stones Neurologic: She states she had a seizure in September 2016 which was attributed to drug overdose. She required intubation and ventilatory support. She has had no further seizures. She denies large distribution strokes. Endocrine: She was diagnosed with DM type I at age 10. She does not check her blood sugars at home. She was told she had a "thyroid problem" during a September [address] [facility] hospitalization but does not know details. TSH was normal at 1.020 on 05/07/2018. She does not have known hyperlipidemia. Hematology/oncology: She denies blood disorders cancers or anemia Psychiatric: She has anxiety but denies depression or other mental health issues Musk skeletal: She denies arthritis or gout. She reports right ankle surgery on 5 occasions between December 2014 and July 2015. She had partial fibula resection. - Constitutional Vitals: Temp Pulse Resp BP Pulse Ox 99.8 F H 108 18 179/77 97 09/13/18 12:33 09/13/18 12:33 09/13/18 12:33 09/13/18 12:33 09/13/18 12:33 Exam: Gen.: She is a well-developed well-nourished female lying in bed who appears in mild discomfort HEENT: Head is atraumatic and normocephalic. Eyes: EOMI. There is no scleral icterus. Mouth: Mucosa is moist. Neck: Supple and nontender. There is no thyromegaly or adenopathy noted. Heart: Regular without murmurs gallops or ectopics. Rate is approximately 104/m Lungs: No wheezes or crackles are heard. Abdomen: Soft and nontender. No masses or guarding are noted. Extremities: The right foot is unremarkable. Dorsalis pedis and posttibial pulses are trace to 1+ palpable. The left foot shows significant erythema of the dorsum of foot with an eschar measuring approximately 5 cm maximum diameter. There is some drainage from an opening in the eschar with slightly purulent fluid visualized. There is significant erythema surrounding the eschar. The foot is painful to touch. No lymphangitic streaking is noted. Neurologic: Mental status: She is talkative and a good historian. Cranial nerves: Smile is symmetric. Forehead wrinkles bilaterally. Tongue protrudes midline. EOMI. Motor: There is no pronator drift. Cerebellar: Finger to nose is intact bilaterally. Skin: Warm and dry. She has significant psoriasis lesions on her skin. Internal Med - H&P Results - Labs CBC & Chem 7: 09/13/18 08:33 09/13/18 08:33 Labs: Short CBC 09/12/18 09/13/18 Range/Units 21:45 08:33 WBC 13.7 H 13.0 H (4.3-11.1) K/mcL Hgb 11.6 10.8 L (11.5-15.4) g/dL Hct 36.5 33.7 L (35.3-44.9) % Plt Count 200 241 (140-400) K/mcL Neutrophils # 12.0 H 11.0 H (1.6-8.9) K/mcL BMP 09/12/18 09/13/18 21:45 08:33 Sodium 132 L 134 L Potassium 5.0 4.9 Chloride 108 H 107 Carbon Dioxide 12 L 10 L* BUN 24 H 23 H Creatinine 1.27 H 1.21 H Glucose 205 H 312 H Calcium 9.7 9.2 Urine 09/12/18 Range/Units 22:35 Urine Color [place] A (Yellow) Urine Clarity Cloudy A (Clear) Urine pH 5.5 (5.0-8.0) pH Units Ur Specific Kyle 1.020 (1.010-1.025) Urine Protein >=300 H (Neg-Trace) mg/dL Urine Glucose (UA) 100 H (Normal) mg/dL - ABG Interpretation ABG results: 09/13/18 11:05 ABG pH 7.29 L ABG pCO2 28 L ABG pO2 35 L* ABG HCO3 14 L ABG Total CO2 15 L ABG O2 Saturation 62 L ABG Base Excess -12 L - Impressions ITS Impressions Foot X-Ray 09/12/18 21:04 IMPRESSION: No acute bony or joint abnormality D/ / Pb Cat MD / Pb Cat MD Interpreting Provider: Pb Cat MD
--- NOTE | 2018-09-13 18:22 | Discharge Summary ---
Orders not resulted at time of discharge: Pending orders 09/12/18 21:40 Culture,Blood [BC] Stat 09/12/18 22:35 Culture,Urine [RM] Stat 09/13/18 05:21 Culture,Wound [RM] Routine Date of Encounter: 09/13/18 Time of Encounter: 18:10 - Discharge Diagnosis (1) Foot abscess, left Priority: Primary Status: Acute (2) Cellulitis Priority: Secondary Status: Acute Qualifiers: Site of cellulitis: extremity Site of cellulitis of extremity: lower extremity Laterality: left Qualified Code(s): L03.116 - Cellulitis of left lower limb (3) Anemia Priority: Secondary Status: Chronic Qualifiers: Chronic kidney disease stage: unspecified stage Qualified Code(s): N18.9 - Chronic kidney disease, unspecified; D63.1 - Anemia in chronic kidney disease (4) DKA (diabetic ketoacidoses) Priority: Secondary Status: Acute Qualifiers: Diabetes mellitus type: type 1 Diabetes mellitus complication detail: without coma Qualified Code(s): E10.10 - Type 1 diabetes mellitus with ketoacidosis without coma (5) Hypertension Priority: Secondary Status: Chronic Qualifiers: Hypertension type: essential hypertension Qualified Code(s): I10 - Essential (primary) hypertension Hospital course: Ms. Pappas is a 38 year old female who came to emergency room stating she had worsening infection of the distal dorsal left foot following a scrape on the foot from her hot tub approximately 2 weeks ago. She did not seek medical attention despite increasing redness. She states 4-5 days ago she had episodes of vomiting without hematemesis. She began having fevers and chills 3-4 days ago. She denies cough dyspnea or pain other than in the foot. She was evaluated in emergency room and was found to have leukocytosis with left shift and significant cellulitis changes with eschar on the distal dorsal left foot. She was admitted to [facility] for ongoing care needs. Initial orders were written by the emergency room physician. I saw her on September 13 and performed a history and physical. She was ordered IV vancomycin and Zosyn in emergency room. IV access could not be obtained peripherally or centrally so IO access was obtained. She had pain on infusion of vancomycin so it was stopped. She tolerated the infused Zosyn. When I saw her I was concerned there might be abscess and/or osteomyelitis. A foot CT was done which did not show abscess but raised the question of possible osteomyelitis. MRI was ordered which showed a 2.9 cm subcutaneous fluid collection dorsal to the fifth metatarsal shaft suspicious for an abscess with adjacent cellulitis. There were additional findings felt most likely to represent noninfectious reactive osteitis with early osteomyelitis considered less likely. I discussed the MRI findings with her and told her she needed to be seen by a surgeon to treat the left foot abscess. She wished to be transferred to [facility]. I spoke with [facility] and she will be transferred to [facility] emergency room. VBG showed pH 7.29. Beta hydroxybutyric acid level was > 2.00 and serum CO2 was 10 consistent with DKA. She was started on IO fluids and given sliding scale insulin coverage until determination of foot diagnosis could be ascertained. Interventional radiology can place IV access upon arrival to [facility] for additional treatment of DKA. - Time Spent with Patient Total time spent providing and/or coordinating discharge services: - Discharge Medications Home Medications: Insulin Regular, Human [Novolin R] 10 unit SQ TIDWM 07/26/17 [History] Insulin Glargine,Hum.rec.anlog [Basaglar Kwikpen U-100] 25 unit SQ HS 05/07/18 [History] Buprenorphine HCl/Naloxone HCl [Suboxone 8 mg-2 mg Sl Film] 1 each SL DAILY 09/12/18 [History] Allergies/Adverse Reactions: Allergy/AdvReac Type Severity Reaction Status Date / Time Amoxicillin Allergy See Verified 09/12/18 21:09 Comments codeine Allergy Hives Verified 09/12/18 21:09 hydrocodone Allergy Rash Verified 09/12/18 21:09 tramadol AdvReac Anxiety Verified 09/12/18 21:09 Date of admission: 09/13/18 00:54 Primary care physician: Pipo Roberts CNP - Constitutional Vitals: Temp Pulse Resp BP Pulse Ox 99.8 F H 108 18 179/77 97 09/13/18 12:33 09/13/18 12:33 09/13/18 12:33 09/13/18 12:33 09/13/18 12:33 - Patient Status Disposition: Transfer Other Condition: Good - Discharge Instructions
[2018-09-13 18:34] VITALS: BP 173/80
[2018-09-13] MEDS ORDERED: Insulin DETEMIR 100 UNIT/ML X5UNITS SQ SCH (21:00)
== END 2018-09-13 19:34 | disposition other institution (70) ==
LOC: EMEROOPIK 20:49 → INPPIK 20:49
PROVIDERS: ADMIT Internal Medicine; ATTEND Internal Medicine

== ENCOUNTER 2018-11-23 08:22 | Inpatient (IN) ==
[2018-11-23] MEDS ORDERED: 0.9 % Sodium Chloride 1,000 ML IVC ONE ×2 (08:57→11:09)
[2018-11-23] MEDS ORDERED: Ondansetron 4 MG/2 ML VIAL IVP ONE (08:57)
--- NOTE | 2018-11-23 09:02 | Emergency Department Note ---
Disposition Clinical Impression: Cellulitis of left hand Diabetic ketoacidosis Qualifiers: Diabetes mellitus type: other specified (including TAMARA) Diabetes mellitus complication detail: without coma Qualified Code(s): E13.10 - Other specified diabetes mellitus with ketoacidosis without coma Disposition: Admitted As Inpatient Condition: Fair Referrals: NONE,PCP [Primary Care Provider] - Forms: Work/School Release, ED Satisfaction Letter Time of Disposition: 12:55 Nausea/Vomiting/Diarrhea HPI - General Chief complaint: ED Nausea/Vomiting/Diarrhea Stated complaint: Blood sugar Time Seen by Provider: 11/23/18 08:52 Source: patient, EMS Mode of arrival: EMS Limitations: no limitations Nursing Notes Reviewed: Yes Vital Signs Reviewed: Yes - History of Present Illness Pt Subjective Complaint: nausea, vomiting Onset (ago): day(s) (Patient says 3 days) Description of emesis: food contents, watery Associated Abdominal Pain: No Severity: moderate Consistency: intermittent Improves with: nothing Worsens with: nonthing Context: other (Patient has a history of diabetes. History of IV drug use. Just got a José Miguel a few days ago, although she is unclear exactly what day, for an amputation of the left foot secondary to her diabetes. Review of records turns out that it was actually a month ago that she had the surgery.) Associated symptoms: Reports: denies other symptoms - Related Data Home Medications Medication Instructions Recorded Confirmed Insulin Regular, Human [Novolin R] 5 unit SQ TIDWM 07/26/17 10/27/18 Insulin Glargine,Hum.rec.anlog 25 unit SQ HS 05/07/18 10/27/18 [Basaglar Vickipen U-100] Gabapentin [Neurontin] 600 mg PO TID 10/16/18 10/27/18 Doxycycline 300 mg PO TID 10/27/18 10/27/18 HydrOXYzine Pamoate [Vistaril] 50 mg PO TID 10/27/18 10/27/18 Lisinopril [Zestril] 30 mg PO DAILY 10/27/18 10/27/18 Metoprolol 1 tab PO QAM 10/27/18 10/27/18 Oxycodone HCl/Acetaminophen 1 each PO Q4H PRN 10/27/18 10/27/18 [Percocet 10-325 mg Tablet] Previous Rx's Medication Instructions Recorded Ibuprofen 800 mg PO TID PRN #15 tablet 10/27/18 Allergies Allergy/AdvReac Type Severity Reaction Status Date / Time Amoxicillin Allergy See Verified 10/16/18 23:30 Comments codeine Allergy Hives Verified 10/16/18 23:30 hydrocodone Allergy Rash Verified 10/16/18 23:30 tramadol AdvReac Anxiety Verified 10/16/18 23:30 All systems ED: reviewed and negative except as stated. Constitutional: Denies: fever, chills ENT ED: Denies: ear pain, throat pain, congestion Cardiovascular: Denies: chest pain, palpitations Respiratory: Denies: cough, dyspnea, wheezes Gastrointestinal: Reports: nausea, vomiting. Denies: abdominal pain, diarrhea, constipation Genitourinary: Denies: urgency, dysuria, frequency Musculoskeletal: Denies: back pain Integumentary: Denies: rash Neurological: Denies: headache Past Medical History - Past Medical History Attestation: Yes The following information was validated with the patient. 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 Absent: scleral icterus, conjunctival injection, periorbital swelling - ENT ENT exam: mucous membranes dry, TM's normal bilaterally, normal external ear exam - Neck Neck exam: Present: normal inspection, full ROM, trachea midline. Absent: meningismus - Chest Chest inspection: Present: normal inspection, symmetric chest wall rise. Absent: tenderness - Respiratory Respiratory exam: Present: normal lung sounds bilaterally. Absent: respiratory distress, wheezes - Cardiovascular Cardiovascular exam: Present: regular rate, normal rhythm, normal heart sounds - Abdominal Exam Abdominal exam: Present: soft, Non-Tender, normal bowel sounds - Extremities Exam Extremities exam: Present: other (Amputation of left foot is noted. Wound is dr estrada. Examination of the left hand shows redness and swelling and tenderness. Distal cap refill and neurologic examination are normal to the fingers and thumb. Tract cardona noted particularly on the other arm.) - Neurological Exam Neurological exam: Present: alert (But groggy). Absent: motor sensory deficit - Psychiatric Psychiatric exam: Present: other (Flat affect) - Skin Skin exam: Present: warm, dry, rash (Cellulitis left hand) Course Course Narrative: Patient arrives with complaint of nausea and vomiting for 3 days. She is di abetic. She has history of substance abuse. Concern for DKA. Also she has an abscess/cellulitis of her left hand and I am concerned that is IVDA related. Accu-Chek was elevated. I will get a DKA workup going as well as a sepsis workup. IV fluids. X-rays. Disposition will be based on diagnostic results and reevaluation. - Reevaluation(s) Reevaluation #1: I have reevaluated the patient a couple of times. Multiple sick patients in the ED heparin limited my ability to sit down a dictated until now. Workup showed diabetic ketoacidosis. We could not get IV access to the patient needed central line. Dr. Wahl, the hospitalist, actually came down from the floor at her request because I was tied up with other critical patients and could not get to this patient central line. He placed a central line. I consulted him on the case to make a management plan. He wanted to see a CT scan of the hand and his long as there was no abscess then the patient could be treated here. At this point the CT was read by the radiologist as showing cellulitis without abscess. I already started the patient on vancomycin and clindamycin. I will call Dr. Wahl back and let him know the CT results to make the disposition plan. Time: 12:57 - Consultations Consultation #1: Dr. Wahl, hospitalist - I called Dr. Wahl with the results of the imaging studies and he is accepting the patient for admission to the hospital. Time: 13:06 Vital Signs Temperature 98.2 F 11/23/18 08:26 Pulse Rate 126 11/23/18 08:26 Respiratory Rate 18 11/23/18 08:26 Blood Pressure 172/98 11/23/18 08:26 O2 Sat by Pulse Oximetry 99 11/23/18 08:26 Temperature 98.2 F 11/23/18 08:26 Pulse Rate 117 11/23/18 13:00 Respiratory Rate 18 11/23/18 13:00 Blood Pressure 189/85 11/23/18 13:00 O2 Sat by Pulse Oximetry 100 11/23/18 13:00 Oxygen Delivery Oxygen Delivery Room Air Procedures - Central Line Placement Left Femoral Central Line Inserted*: Yes Central Line Catheter Replacement*: No Central Line Insertion: emergent Consent Obtained: verbal consent Patient Placed on Monitor/Pulse Ox: Yes During the Procedure: clinician is wearing sterile gloves, cap, mask,& gown during insertion, sterile field and sterile technique are maintained, patient's face is covered with drape or mask and wearing a cap, everyone in room is wearing a mask Prep the Procedure Site: apply chloraprep to the skin using a back and forth scrubbing motion, apply chloraprep for 30 seconds (upper body), 1-2 min (femoral sites), allow prep to dry, drape the patient with a full body drape Ultrasound Used for Placement: No Central Line Lumen Inserted: triple Post Procedure: sutured in place, good blood return, all ports aspirated, flushed, capped, sterile dressing applied, guide wire removed and visualized Patient Tolerated Procedure: no complications Complications: none Name of Clinician Inserting Central Line: Vish hospitalist came to assist in the ED Date: 11/23/18 Nausea/Vomiting/Diarrhea - Medical Records Medical records reviewed: Yes I reviewed the patient's medical records. - Lab Data Lab results reviewed: Yes I reviewed the patient's lab results. Result diagrams: 11/23/18 09:32 11/23/18 09:32 Lab Results 11/23/18 11/23/18 11/23/18 Range/Units 08:34 09:11 09:11 WBC (4.3-11.1) K/mcL RBC (3.82-4.97) M/mcL Hgb (11.5-15.4) g/dL Hct (35.3-44.9) % MCV (83.0-100.0) fL MCH (28.0-33.3) pg MCHC (31.6-35.5) g/dL RDW (11.5-14.5) % Plt Count (140-400) K/mcL MPV (9.4-12.4) fL Seg Neutrophils % % Band Neutrophils % (0-4) % Lymphocytes % % Metamyelocytes % (0) % Myelocytes % (0) % Promyelocytes % (0) % Neutrophils # (1.6-8.9) K/mcL Lymphocytes # (0.6-4.6) K/mcL Platelet Estimate (Normal) Sample Site ABG pH (7.32-7.45) pH Units ABG pCO2 (35-45) mmHg ABG pO2 (85-104) mmHg ABG HCO3 (21-27) mEq/L ABG Total CO2 (20-26) mEq/L ABG O2 Saturation (95-98) % ABG Base Excess (-2 to 3) mEq/L Alvarado Test O2 Delivery Device Sodium (136-145) mEq/L Potassium (3.5-5.1) mEq/L Chloride (98-107) mEq/L Carbon Dioxide (23-29) mEq/L BUN (6-20) mg/dL Creatinine (0.60-1.20) mg/dL Est GFR ( Amer) (> 60) Est GFR (Non-Af Amer) (> 60) BUN/Creatinine Ratio (6-26) Glucose (70-105) mg/dL POC Glucose 360 H (70-99) mg/dL Calculated Osmolality (280-300) Lactic Acid (0.5-2.2) mmol/L Calcium (8.6-10.3) mg/dL Troponin I (< 0.04) ng/mL Beta-Hydroxybutyric Acd (0.02-0.27) mmol/L Urine Color Yellow (Yellow) Urine Clarity Clear (Clear) Urine pH 6.5 (5.0-8.0) pH Units Ur Specific Colton 1.025 (1.010-1.025) Urine Protein >=300 H (Neg-Trace) mg/dL Urine Glucose (UA) 500 H (Normal) mg/dL Urine Ketones >=160 H (Negative) mg/dL Urine Blood Moderate H (Negative) Urine Nitrite Negative (Negative) Urine Bilirubin Moderate H (Negative) Urine Urobilinogen Normal (Normal) mg/dL Ur Leukocyte Esterase Negative (Negative) Urine Microscopic RBC 3-5 H (0-3) per hpf Urine Microscopic WBC 5-15 H (0-3) per hpf Ur Squamous Epith Cells Few (None-Few) per lpf Urine Bacteria Many H (None-Few) per hpf Hyaline Casts Few (None-Few) per lpf Urine Mucus Moderate H (Few) Ur Culture Indicated? NO (NO) Urine Opiates Screen Negative (Pxicor=519) ng/mL Ur Oxycodone Screen Positive H (Cutoff= 100) ng/mL Ur Barbiturates Screen Negative (Fbcfqo=482) ng/mL Ur Phencyclidine Scrn Negative (Cutoff=25) ng/mL Ur Amphetamines Screen Positive H (Cquzae=4926) ng/mL U Benzodiazepines Scrn Positive H (Jvfoai=155) ng/mL Urine Cocaine Screen Negative (Cutoff= 300) ng/mL U Marijuana (THC) Screen Negative (Cutoff = 50) ng/mL Ur Drug Screen Interp See Below Ethyl Alcohol (Less than 10) mg/dL 11/23/18 11/23/18 11/23/18 Range/Units 09:32 09:32 09:32 WBC 23.3 H (4.3-11.1) K/mcL RBC 4.15 (3.82-4.97) M/mcL Hgb 11.8 (11.5-15.4) g/dL Hct 35.0 L (35.3-44.9) % MCV 84.3 D (83.0-100.0) fL MCH 28.4 (28.0-33.3) pg MCHC 33.7 (31.6-35.5) g/dL RDW 13.5 (11.5-14.5) % Plt Count 345 (140-400) K/mcL MPV 11.1 (9.4-12.4) fL Seg Neutrophils % 72.0 % Band Neutrophils % 4.0 (0-4) % Lymphocytes % 14.0 % Metamyelocytes % 2.0 H (0) % Myelocytes % 2.0 H (0) % Promyelocytes % 6.0 H (0) % Neutrophils # 17.7 H (1.6-8.9) K/mcL Lymphocytes # 3.3 (0.6-4.6) K/mcL Platelet Estimate Normal (Normal) Sample Site ABG pH (7.32-7.45) pH Units ABG pCO2 (35-45) mmHg ABG pO2 (85-104) mmHg ABG HCO3 (21-27) mEq/L ABG Total CO2 (20-26) mEq/L ABG O2 Saturation (95-98) % ABG Base Excess (-2 to 3) mEq/L Alvarado Test O2 Delivery Device Sodium 129 L (136-145) mEq/L Potassium 3.8 (3.5-5.1) mEq/L Chloride 100 (98-107) mEq/L Carbon Dioxide 10 L* (23-29) mEq/L BUN 36 H (6-20) mg/dL Creatinine 1.44 H (0.60-1.20) mg/dL Est GFR ( Amer) 49 L (> 60) Est GFR (Non-Af Amer) 40 L (> 60) BUN/Creatinine Ratio 25 (6-26) Glucose 346 H (70-105) mg/dL POC Glucose (70-99) mg/dL Calculated Osmolality 290 (280-300) Lactic Acid 1.3 (0.5-2.2) mmol/L Calcium 11.2 H (8.6-10.3) mg/dL Troponin I < 0.03 (< 0.04) ng/mL Beta-Hydroxybutyric Acd (0.02-0.27) mmol/L Urine Color (Yellow) Urine Clarity (Clear) Urine pH (5.0-8.0) pH Units Ur Specific Colton (1.010-1.025) Urine Protein (Neg-Trace) mg/dL Urine Glucose (UA) (Normal) mg/dL Urine Ketones (Negative) mg/dL Urine Blood (Negative) Urine Nitrite (Negative) Urine Bilirubin (Negative) Urine Urobilinogen (Normal) mg/dL Ur Leukocyte Esterase (Negative) Urine Microscopic RBC (0-3) per hpf Urine Microscopic WBC (0-3) per hpf Ur Squamous Epith Cells (None-Few) per lpf Urine Bacteria (None-Few) per hpf Hyaline Casts (None-Few) per lpf Urine Mucus (Few) Ur Culture Indicated? (NO) Urine Opiates Screen (Zpohng=186) ng/mL Ur Oxycodone Screen (Cutoff= 100) ng/mL Ur Barbiturates Screen (Abgdgu=616) ng/mL Ur Phencyclidine Scrn (Cutoff=25) ng/mL Ur Amphetamines Screen (Yxtuwl=7964) ng/mL U Benzodiazepines Scrn (Xscizg=506) ng/mL Urine Cocaine Screen (Cutoff= 300) ng/mL U Marijuana (THC) Screen (Cutoff = 50) ng/mL Ur Drug Screen Interp Ethyl Alcohol < 10 (Less than 10) mg/dL 11/23/18 11/23/18 11/23/18 Range/Units 09:32 10:05 12:24 WBC (4.3-11.1) K/mcL RBC (3.82-4.97) M/mcL Hgb (11.5-15.4) g/dL Hct (35.3-44.9) % MCV (83.0-100.0) fL MCH (28.0-33.3) pg MCHC (31.6-35.5) g/dL RDW (11.5-14.5) % Plt Count (140-400) K/mcL MPV (9.4-12.4) fL Seg Neutrophils % % Band Neutrophils % (0-4) % Lymphocytes % % Metamyelocytes % (0) % Myelocytes % (0) % Promyelocytes % (0) % Neutrophils # (1.6-8.9) K/mcL Lymphocytes # (0.6-4.6) K/mcL Platelet Estimate (Normal) Sample Site R Radial ABG pH 7.25 L (7.32-7.45) pH Units ABG pCO2 22 L (35-45) mmHg ABG pO2 97 (85-104) mmHg ABG HCO3 10 L (21-27) mEq/L ABG Total CO2 10 L (20-26) mEq/L ABG O2 Saturation 97 (95-98) % ABG Base Excess -16 L (-2 to 3) mEq/L Alvarado Test N/A O2 Delivery Device Room Air Sodium (136-145) mEq/L Potassium (3.5-5.1) mEq/L Chloride (98-107) mEq/L Carbon Dioxide (23-29) mEq/L BUN (6-20) mg/dL Creatinine (0.60-1.20) mg/dL Est GFR ( Amer) (> 60) Est GFR (Non-Af Amer) (> 60) BUN/Creatinine Ratio (6-26) Glucose (70-105) mg/dL POC Glucose 321 H (70-99) mg/dL Calculated Osmolality (280-300) Lactic Acid (0.5-2.2) mmol/L Calcium (8.6-10.3) mg/dL Troponin I (< 0.04) ng/mL Beta-Hydroxybutyric Acd > 2.00 H (0.02-0.27) mmol/L Urine Color (Yellow) Urine Clarity (Clear) Urine pH (5.0-8.0) pH Units Ur Specific Colton (1.010-1.025) Urine Protein (Neg-Trace) mg/dL Urine Glucose (UA) (Normal) mg/dL Urine Ketones (Negative) mg/dL Urine Blood (Negative) Urine Nitrite (Negative) Urine Bilirubin (Negative) Urine Urobilinogen (Normal) mg/dL Ur Leukocyte Esterase (Negative) Urine Microscopic RBC (0-3) per hpf Urine Microscopic WBC (0-3) per hpf Ur Squamous Epith Cells (None-Few) per lpf Urine Bacteria (None-Few) per hpf Hyaline Casts (None-Few) per lpf Urine Mucus (Few) Ur Culture Indicated? (NO) Urine Opiates Screen (Dmwnlt=011) ng/mL Ur Oxycodone Screen (Cutoff= 100) ng/mL Ur Barbiturates Screen (Fqchmn=141) ng/mL Ur Phencyclidine Scrn (Cutoff=25) ng/mL Ur Amphetamines Screen (Cdlfei=9335) ng/mL U Benzodiazepines Scrn (Foigqw=694) ng/mL Urine Cocaine Screen (Cutoff= 300) ng/mL U Marijuana (THC) Screen (Cutoff = 50) ng/mL Ur Drug Screen Interp Ethyl Alcohol (Less than 10) mg/dL - EKG Data EKG attestation: Yes I reviewed and interpreted this EKG. EKG results narrative: Twelve-lead EKG performed at 8:40 AM. Ordered, reviewed and interpreted by ED physician shows sinus tachycardia at a rate of 129. Normal axis. Voltage criteria for LVH. Good hour progression across precordium. Nonspecific ST-T wave abnormalities most likely related to LVH. I do not see anything is blatantly indicative of ischemia. Critical Care Time Critical Care Time: Yes Total Critical Care Time: 45 Attestation: DKA. Potentially life-threatening issue requiring urgent evaluation and intervention. Integument H&P. Ordering labs and responding to results. Ordering imaging studies interpreting them are slightly results. Consulting hospitalist. Total critical care time was excluding procedures.
[2018-11-23 09:18] LABS: Bilirubin,Urine Moderate (Negative); Blood,Urine Moderate (Negative); Clarity,Urine Clear (Clear); Color,Urine Yellow (Yellow); Glucose,Urine (UA) 500 mg/dL (Normal); Ketones,Urine >=160 mg/dL (Negative); Leukocyte Esterase,Urine Negative (Negative); Nitrite,Urine Negative (Negative); PH,Urine 6.5 pH Units (5.0-8.0); Protein,Urine >=300 mg/dL (Neg-Trace); Specific Gravity,Urine 1.025 (1.010-1.025); Urobilinogen,Urine Normal (Normal)
[2018-11-23 09:36] LABS: Squamous Epithelial Cell,Urine Few per lpf (None-Few)
[2018-11-23 09:37] LABS: Amphetamine Screen,Urine Positive ng/mL (Cutoff=1000); Bacteria,Urine Many per hpf (None-Few); Barbiturate Screen,Urine Negative ng/mL (Cutoff=200); Benzodiazepines Screen,Urine Positive ng/mL (Cutoff=200); Cannabinoid Screen,Urine Negative ng/mL (Cutoff = 50); Cocaine Screen,Urine Negative ng/mL (Cutoff= 300); Hyaline Casts,Urine Few per lpf (None-Few); Mucus,Urine Moderate (Few); Opiate Screen,Urine Negative ng/mL (Cutoff=300); Phencyclidine Screen,Urine Negative ng/mL (Cutoff=25)
[2018-11-23 09:53] LABS: Hemoglobin 11.8 g/dL (11.5-15.4); Mean Corpuscular HGB Conc 33.7 g/dL (31.6-35.5); Mean Corpuscular Hemoglobin 28.4 pg (28.0-33.3); Mean Corpuscular Volume 84.3 fL (83.0-100.0); Mean Platelet Volume 11.1 fL (9.4-12.4); Platelet Count 345 K/mcL (140-400); Red Blood Count 4.15 M/mcL (3.82-4.97); Red Cell Distribution Width 13.5 % (11.5-14.5)
[2018-11-23 10:08] LABS: ABG Base Excess -16 mEq/L (-2 to 3); ABG HCO3 10 mEq/L (21-27); ABG Oxygen Saturation 97 % (95-98); ABG PCO2 22 mmHg (35-45); ABG PH 7.25 pH Units (7.32-7.45); ABG PO2 97 mmHg (85-104); ABG TCO2 10 mEq/L (20-26)
[2018-11-23 10:13] LABS: BUN/Creatinine Ratio 25 (6-26); Blood Urea Nitrogen 36 mg/dL (6-20); Calcium 11.2 mg/dL (8.6-10.3); Carbon Dioxide 10 mEq/L (23-29); Chloride 100 mEq/L (98-107); Ethanol < 10 mg/dL (Less than 10); Glucose 346 mg/dL (70-105); Osmolality,Calculated 290 (280-300); Potassium 3.8 mEq/L (3.5-5.1); Sodium 129 mEq/L (136-145); Troponin I < 0.03 ng/mL (< 0.04); eGFR For Non-African Americans 40 (> 60)
[2018-11-23 10:35] LABS: Lymphocytes # 3.3 K/mcL (0.6-4.6); Neutrophils # 17.7 K/mcL (1.6-8.9)
[2018-11-23 10:36] LABS: Platelet Estimate Normal (Normal)
[2018-11-23] MEDS ORDERED: *HR* Dextrose 50 % in Water (Vial) 50 ML VIAL IVP PRN ×2 (11:10→15:12)
[2018-11-23] MEDS ORDERED: Isovue-370 500 ML BOTTLE IVP ONE (11:10)
[2018-11-23] MEDS ORDERED: Clindamycin 900 MG/50 ML 900 MG/50 ML IV.SOLN IVPB ONE (11:12)
[2018-11-23] MEDS ORDERED: Insulin Human Regular 100 UNIT in 0.9 % Sodium Chloride 100 ML IVC SCH ×2 (11:15→15:12)
[2018-11-23] MEDS ORDERED: Ondansetron 4 MG/2 ML VIAL IVP PRN ×2 (15:12→16:27)
[2018-11-23] MEDS ORDERED: Naloxone 0.4 MG/ML INJ IVP PRN (15:12)
[2018-11-23] MEDS ORDERED: 0.9 % Sodium Chloride 1,000 ML IVC SCH (15:12)
--- NOTE | 2018-11-23 16:05 | Internal Med History&Physical ---
Date of Encounter: 11/23/18 Time of Encounter: 15:15 Assessment and Plan (1) DKA (diabetic ketoacidoses) Current visit: Yes Status: Acute IV fluids have been ordered. Basal insulin will be resumed at lower dose initially and Accu-Cheks with SSI coverage started. Blood sugar is now less than 200 MG/DL so insulin drip will not be given. Qualifiers: Diabetes mellitus type: type 1 Diabetes mellitus complication detail: without coma Qualified Code(s): E13.10 - Other specified diabetes mellitus with ketoacidosis without coma (2) Cellulitis of left hand Current visit: Yes Status: Acute She was given IV clindamycin and vancomycin in emergency room. Clindamycin will be continued with lactobacillus. Hand CT showed no evidence of abscess. (3) Hypercalcemia Current visit: Yes Status: Acute IV fluids will be started and labs rechecked in a.m. (4) JACK (acute kidney injury) Current visit: No Status: Acute IV fluids will be ordered and labs rechecked in a.m. (5) Hepatitis C Current visit: No Status: Chronic She has not received antiviral agents. Qualifiers: Viral hepatitis chronicity: chronic Hepatic coma status: without hepatic coma Qualified Code(s): B18.2 - Chronic viral hepatitis C (6) Hypertension Current visit: No Status: Chronic Hold lisinopril but continue metoprolol. Qualifiers: Hypertension type: essential hypertension Qualified Code(s): I10 - Essential (primary) hypertension (7) Foot abscess, left Current visit: No Status: Acute Will order CT of foot to rule out residual/recurrent abscess. (8) Tobacco abuse Current visit: No Status: Chronic NicoDerm patch will be ordered. (9) Anxiety Current visit: No Status: Acute She reports taking clonazepam at home but is uncertain of the dose. Xanax will be given on a prn basis. (10) Anemia Current visit: No Status: Chronic Normal hemoglobin in ER probably artifactual from hemoconcentration. Anemia testing will be done in a.m. Qualifiers: Anemia type: unspecified type Qualified Code(s): D64.9 - Anemia, unspecified (11) Vomiting Current visit: No Status: Acute IV fluids and anti-emetics have been ordered. Qualifiers: Vomiting type: bilious vomiting Nausea presence: with nausea Qualified Code(s): R11.14 - Bilious vomiting Internal Medicine - H&P: HPI Chief complaint: Vomiting, left hand infection Admitted From: Emergency Dept Plans for Post Hospital Care: Home History of present illness: Ms. Pappas is a 38 year old female who came to emergency room stating she had 4 episodes of vomiting and increased pain and redness in her left hand onset 11/21/2018. She reports at least one episode of vomiting contained what appeared to be dark blood. She denies fevers chills or diarrhea. She came to emergency room and was found to have evidence of left hand cellulitis and DKA. She was admitted to [facility] for ongoing care needs. She was hospitalized last at [facility] September 13. She was found to have left foot abscess and was transferred to [facility]. She underwent proximal ramos smetatarsal amputation of the left foot. She is uncertain of the actual date of surgery. She states she missed a follow-up appointment with the surgeon. Sutures remain in place in the left foot. She states she does walker ambulation at home. [facility] [place] skeletal history is pertinent but otherwise for reported right ankle surgery 5 between January 17 08/14/2015 with partial fibular resection. She denies arthritis or gout. She was diagnosed with DM type I at age 10. She does not check her blood page gars at home. Hemoglobin A1c was 9.7% on 05/07/2018. She was told she had a "thyroid problem" during a September 2016 [facility] hospitalization but does not know details. TSH was normal at 1.020 on 05/07/2018. She does not have known hyperlipidemia. Past Med Surg Social Fam HX - Past Medical History Medical history: arthritis, asthma, cirrhosis, CHF, diabetes, GERD, GI bleed, hepatitis, hyperlipidemia, hypertension, migraine, SVT Additional medical history: psoriasis Psychiatric history: anxiety, ADHD, bipolar, depression, panic disorder, prior suicide attempt, previous psychiatric hospitalization, other - Past Surgical History Surgical History: appendectomy, , orthopedic, other (Ankle surgery, partial left foot amputation/osteomyelitis), RAFAEL/BSO Additional surgical history: ORIF RT ANKLE, RT KNEE SURG, left foot amputation. surg to abscess ([facility]) - Social History Smoking Status: Current every day smoker Smokeless Tobacco Status: No Alcohol use: none Drug use: IV Drug Use, prescription drug abuse, other - Family History Mother Adopted: No Family Member Ethnicity: Non- Living Status: Still Living Hx Family Cardiac Disorders: Yes Hx Family Respiratory Disorders: Yes Hx Family Cancer: Yes Hx Family GI Disorders: Yes Hx Family Endocrine Disorder: Yes Hx Family Neuromuscular Disorders: No Hx Family Neurologic Disorders: No Hx Family HEENT Disorders: No Hx Family Autoimmune Disorders: No Internal Medicine - H&P: Meds Insulin Regular, Human [Novolin R] 5 unit SQ TIDWM 07/26/17 [History] Insulin Glargine,Hum.rec.anlog [Basaglar Kwikpen U-100] 25 unit SQ HS 05/07/18 [History] Gabapentin [Neurontin] 600 mg PO TID 10/16/18 [History] Doxycycline 300 mg PO TID 10/27/18 [History] HydrOXYzine Pamoate [Vistaril] 50 mg PO TID 10/27/18 [History] Ibuprofen 800 mg PO TID PRN #15 tablet 10/27/18 [Rx] Lisinopril [Zestril] 30 mg PO DAILY 10/27/18 [History] Metoprolol 1 tab PO QAM 10/27/18 [History] Oxycodone HCl/Acetaminophen [Percocet 10-325 mg Tablet] 1 each PO Q4H PRN 10/27/18 [History] Allergy/AdvReac Type Severity Reaction Status Date / Time Amoxicillin Allergy See Verified 10/16/18 23:30 Comments codeine Allergy Hives Verified 10/16/18 23:30 hydrocodone Allergy Rash Verified 10/16/18 23:30 tramadol AdvReac Anxiety Verified 10/16/18 23:30 All Systems PM: A 10-system review of systems was performed and is negative for pertinent findings except as documented above in the HPI. Review of systems: Review of systems from her August 2018 [facility] hospitalization were reviewed and revised as below. Gen.: Her weight has decreased from 76.657 kg on 07/03/2017 to 56.869 kg today Cardiovascular: She has history of hypertension. She reports she has been diagnosed with CHF. An echocardiogram 01/01/2018 showed LVEF of 65-70%. The interventricular septum and posterior wall thickness measurements were 0.80 cm respectively. E/A ratio was 1.1. Aortic insufficiency pressure half time is 448 ms. A questionable valve vegetation was not confirmed to be present on ANSLEY done 01/04/2018. She has occasional sinus tachycardia. She denies DVT or pulmonary embolus. Respiratory: She has smoked cigarettes since age 8 up to 2 packs per day. She has been diagnosed with chronic bronchitis. She was found to have hypoxemia at discharge April 2017 and was prescribed home oxygen. She states it was removed from the home because of noncompliance in usage. GI: She was diagnosed with hepatitis C 2008 but she has not received treatment. She had a gallstone in the past but has not had cholecystectomy. She denies disorders of her exocrine pancreas. She has GERD. : She denies hematuria dysuria or kidney stones Neurologic: She states she had a seizure in September 2016 which was attributed to drug overdose. She required intubation and ventilatory support. She has had no further seizures. She denies large distribution strokes. Endocrine: As per history of present illness Hematology/oncology: She denies blood disorders cancers or anemia Psychiatric: She has anxiety and chart reports a diagnosis of bipolar disorder with prior suicide attempt and previous psychiatric hospitalizations. [place] skeletal: As per history of present illness - Constitutional Vitals: Temp Pulse Resp BP Pulse Ox 98.2 F 121 18 183/89 100 11/23/18 08:26 11/23/18 14:38 11/23/18 14:38 11/23/18 14:38 11/23/18 13:00 Exam: Gen.: She is a well-developed lean female lying in bed who appears in minimal distress at present time HEENT: Head is atraumatic and normocephalic. Eyes: EOMI. There is no scleral icterus. Mouth: Mucosa is moist. Neck: Supple and nontender. There is no thyromegaly or adenopathy noted. Heart: Regular without murmurs gallops or ectopics. Rate is approximately 112/m. Lungs: No wheezes or crackles are heard. Abdomen: Soft and nontender. No masses or guarding are noted. Extremities: Her left hand has significant erythema and edema. There is a bulla on the palmar surface at the periphery of the erythema estimated approximately 3 cm maximum diameter. There are 2 small ruptured vesicles on the dorsum of the left hand in the interspace between thumb and index finger. No lymphangitic streaking is noted. The left foot shows proximal transmetatarsal amputation with sutures in place. There is slight wound dehiscence involving the distal lateral incision site. There is no significant erythema or drainage noted. Neurologic: Mental status: She is talkative and a fair to good historian. She does not remember some details of her history. Cranial nerves: Smile is symmetric. Forehead wrinkles bilaterally. Tongue protrudes midline. EOMI. Motor: There is no pronator drift. Cerebellar: Finger to nose is intact bilaterally. Skin: Warm and dry Internal Med - H&P Results - Labs CBC & Chem 7: 11/23/18 09:32 11/23/18 09:32 Labs: Short CBC 11/23/18 Range/Units 09:32 WBC 23.3 H (4.3-11.1) K/mcL Hgb 11.8 (11.5-15.4) g/dL Hct 35.0 L (35.3-44.9) % Plt Count 345 (140-400) K/mcL Neutrophils # 17.7 H (1.6-8.9) K/mcL BMP 11/23/18 09:32 Sodium 129 L Potassium 3.8 Chloride 100 Carbon Dioxide 10 L* BUN 36 H Creatinine 1.44 H Glucose 346 H Calcium 11.2 H Cardiac Enzymes 11/23/18 Range/Units 09:32 Troponin I < 0.03 (< 0.04) ng/mL Urine 11/23/18 Range/Units 09:11 Urine Color Yellow (Yellow) Urine Clarity Clear (Clear) Urine pH 6.5 (5.0-8.0) pH Units Ur Specific [place] 1.025 (1.010-1.025) Urine Protein >=300 H (Neg-Trace) mg/dL Urine Glucose (UA) 500 H (Normal) mg/dL - ABG Interpretation ABG results: 11/23/18 10:05 ABG pH 7.25 L ABG pCO2 22 L ABG pO2 97 ABG HCO3 10 L ABG Total CO2 10 L ABG O2 Saturation 97 ABG Base Excess -16 L - Impressions ITS Impressions Chest X-Ray 11/23/18 08:57 IMPRESSION: Negative chest. D/ / Dago Hirsch MD / Dago Hirsch MD Interpreting Provider: Dago Hirsch MD Hand CT 11/23/18 11:10 IMPRESSION: 1. Soft tissue edema in the hand especially in the soft tissues around the thenar musculature. No fluid collection or abscess. D/ / 11/23/2018 12:54:31 Jesse Aparicio MD / Charlotte Mercado Interpreting Provider: Jesse Aparicio MD
[2018-11-23] MEDS: *HR* Promethazine 25 MG/ML VIAL IVP PRN ×2 (16:32→22:01)
[2018-11-23] MEDS: 0.9 % Sodium Chloride w KCl 20 MEQ/1,000 ML MLS IVC SCH (16:39)
[2018-11-23] MEDS: Clindamycin 900 MG/50 ML 900 MG/50 ML IV.SOLN IVPB SCH ×2 (16:40→23:57)
[2018-11-23] MEDS: Nicotine 21 MG PATCH.TD24 TD SCH (18:02)
[2018-11-23] MEDS: *HR* OxyCODONE/APAP 5/325 TABLET PO PRN (19:28)
[2018-11-23] MEDS: Lactobacillus 1 EACH CAP.SPRINK PO SCH (19:28)
[2018-11-23] MEDS: Insulin LISPRO 300 UNITS/3 ML VIAL SQ SCH (19:28)
[2018-11-23] MEDS: Insulin DETEMIR 100 UNIT/ML X5UNITS SQ SCH (19:41)
[2018-11-24] MEDS ORDERED: Pantoprazole 40 MG VIAL IVP ONE (01:34)
[2018-11-24] MEDS: *HR* OxyCODONE/APAP 5/325 TABLET PO PRN ×4 (01:50→21:05)
[2018-11-24] MEDS: 0.9 % Sodium Chloride w KCl 20 MEQ/1,000 ML MLS IVC SCH ×3 (04:00→21:14)
[2018-11-24 05:32] LABS: Alanine Aminotransferase 3 Units/L (7-52); Albumin 3.6 g/dL (3.5-5.7); Albumin/Globulin Ratio 0.8 (1.1-2.2); Alkaline Phosphatase 128 Units/L (34-104); Aspartate Amino Transferase 4 Units/L (13-39); BUN/Creatinine Ratio 26 (6-26); Bilirubin,Total 0.3 mg/dL (0.3-1.0); Blood Urea Nitrogen 30 mg/dL (6-20); Calcium 9.6 mg/dL (8.6-10.3); Carbon Dioxide 12 mEq/L (23-29); Chloride 108 mEq/L (98-107); Globulin 4.3 g/dL (2.4-3.5); Glucose 341 mg/dL (70-105); Magnesium 1.7 mg/dL (1.6-2.6); Osmolality,Calculated 298 (280-300); Phosphorous 2.8 mg/dL (2.7-4.5); Potassium 4.1 mEq/L (3.5-5.1); Sodium 134 mEq/L (136-145); Total Protein 7.9 g/dL (6.4-8.9); eGFR For Non-African Americans 51 (> 60)
[2018-11-24] MEDS: *HR* Promethazine 25 MG/ML VIAL IVP PRN ×3 (06:10→21:07)
[2018-11-24 07:17] LABS: Basophils % 0.1 %; Eosinophils % 0.1 %; Hematocrit 30.4 % (35.3-44.9); Hemoglobin 10.1 g/dL (11.5-15.4); Immature Granulocytes % 0.6 % (0-4); Lymphocytes % 5.5 %; Mean Corpuscular HGB Conc 33.2 g/dL (31.6-35.5); Mean Corpuscular Hemoglobin 28.1 pg (28.0-33.3); Mean Corpuscular Volume 84.4 fL (83.0-100.0); Mean Platelet Volume 11.1 fL (9.4-12.4); Monocytes % 4.1 %; Platelet Count 330 K/mcL (140-400); Red Cell Distribution Width 13.3 % (11.5-14.5); Segmented Neutrophils % 89.6 %
[2018-11-24 07:18] LABS: Lymphocytes # 1.1 K/mcL (0.6-4.6); Monocytes # 0.8 K/mcL (0.0-1.3)
[2018-11-24] MEDS: Insulin LISPRO 300 UNITS/3 ML VIAL SQ SCH ×4 (08:44→21:07)
[2018-11-24] MEDS: Nicotine 21 MG PATCH.TD24 TD SCH (08:45)
[2018-11-24] MEDS: Insulin DETEMIR 100 UNIT/ML X5UNITS SQ SCH ×2 (08:45→21:06)
[2018-11-24] MEDS: Lactobacillus 1 EACH CAP.SPRINK PO SCH ×2 (08:45→21:06)
[2018-11-24] MEDS: Clindamycin 900 MG/50 ML 900 MG/50 ML IV.SOLN IVPB SCH ×2 (08:45→16:41)
[2018-11-24 09:37] LABS: % Iron Saturation 17 % (15-50); Iron 41 mcg/dL (50-170); Transferrin 177 mg/dL (203-362)
[2018-11-24 09:56] LABS: Ferritin 212 ng/mL (10-120)
[2018-11-24 10:01] LABS: Folate 7.1 ng/mL (3.0-16.0)
--- NOTE | 2018-11-24 14:05 | Internal Med Progress Note ---
Date of Encounter: 11/24/18 Time of Encounter: 13:55 - Assessment and plan (1) DKA (diabetic ketoacidoses) Current Visit: Yes Status: Acute Assessment and plan: November 24. Improving. Continue IV fluids and SSI. Qualifiers: Diabetes mellitus type: type 1 Diabetes mellitus complication detail: without coma Qualified Code(s): E13.10 - Other specified diabetes mellitus with ketoacidosis without coma (2) Cellulitis of left hand Current Visit: Yes Status: Acute Assessment and plan: November 24. WBC has decreased to 19.0 with 89.6% segs. She remains afebrile. Continue present Rx. Recheck labs in a.m. (3) Hypercalcemia Current Visit: Yes Status: Acute Assessment and plan: November 24. Resolved. Calcium is normalized to 9.6 with albumin 3.6. (4) JACK (acute kidney injury) Current Visit: No Status: Acute Assessment and plan: November 24. Improved. BUN and creatinine are 30 and 1.17 respectively with estimated GFR 51. Continue present Rx and recheck labs in a.m. (5) Hepatitis C Current Visit: No Status: Chronic Qualifiers: Viral hepatitis chronicity: chronic Hepatic coma status: without hepatic coma Qualified Code(s): B18.2 - Chronic viral hepatitis C (6) Hypertension Current Visit: No Status: Chronic Assessment and plan: November 24. Continue metoprolol. Qualifiers: Hypertension type: essential hypertension Qualified Code(s): I10 - Essenti al (primary) hypertension (7) Foot abscess, left Current Visit: No Status: Acute Assessment and plan: November 24. CT of left ankle showed diffuse soft tissue edema with soft tissue wound/ulceration seen medially and laterally. There was no organized fluid collection or evidence of subcutaneous gas. There were postsurgical changes of amputation with cortical regularity (? irregularity) at the amputation site of the calcaneus with osteomyelitis difficult to entirely exclude. She will likely need follow-up imaging to ensure osteomyelitis not present. (8) Tobacco abuse Current Visit: No Status: Chronic Assessment and plan: November 24. Continue NicoDerm patch (9) Anxiety Current Visit: No Status: Acute Assessment and plan: November 24. Remain off Klonopin. Continue Xanax prn. (10) Anemia Current Visit: No Status: Chronic Assessment and plan: November 24. Hemoglobin has decreased to 10.1 with hydration. Anemia testing shows iron 41, transferrin saturation 70%, transferrin 177, ferritin 212, B12 524, and folate 7.1. Continue to monitor CBC periodically. Qualifiers: Anemia type: unspecified type Qualified Code(s): D64.9 - Anemia, unspecified (11) Vomiting Current Visit: No Status: Acute Assessment and plan: November 24. Improved. Continue present Rx. Qualifiers: Vomiting type: bilious vomiting Nausea presence: with nausea Qualified Code(s): R11.14 - Bilious vomiting - Subjective Interval history: November 24. She has no new complaints. She reports her only pain is in the left hand. - Constitutional Vitals: Temp Pulse Resp BP Pulse Ox 97.3 F L 100 16 155/84 99 11/24/18 10:33 11/24/18 10:33 11/24/18 10:33 11/24/18 10:11/24/18 10:33 Exam: Her left hand shows very slight decrease in erythema and swelling. There is no significant change in the bulla on the palmar surface. I reviewed her medications and lab results. Internal Medicine: Result - Labs CBC & Chem 7: 11/24/18 04:10 11/24/18 04:10 Labs: Short CBC 11/24/18 Range/Units 04:10 WBC 19.0 H (4.3-11.1) K/mcL Hgb 10.1 L D (11.5-15.4) g/dL Hct 30.4 L (35.3-44.9) % Plt Count 330 (140-400) K/mcL Neutrophils # 17.0 H (1.6-8.9) K/mcL BMP 11/24/18 04:10 Sodium 134 L Potassium 4.1 Chloride 108 H Carbon Dioxide 12 L BUN 30 H Creatinine 1.17 Glucose 341 H Calcium 9.6 Liver Function 11/24/18 Range/Units 04:10 Total Bilirubin 0.3 (0.3-1.0) mg/dL AST 4 L (13-39) Units/L ALT 3 L (7-52) Units/L Alkaline Phosphatase 128 H (34-104) Units/L Albumin 3.6 (3.5-5.7) g/dL - ABG Interpretation ABG results: ABG ABG pH 7.25 pH Units (7.32-7.45) L 11/23/18 10:05 ABG pCO2 22 mmHg (35-45) L 11/23/18 10:05 ABG pO2 97 mmHg (85-104) 11/23/18 10:05 ABG O2 Saturation 97 % (95-98) 11/23/18 10:05 - Impressions Impressions Ankle CT 11/23/18 15:44 IMPRESSION: 1. Diffuse soft tissue edema with soft tissue wound/ulceration seen medially and laterally. No organized fluid collection identified. No evidence for subcutaneous gas. 2. Postsurgical changes of amputation with cortical regularity at the amputation site of the calcaneus which is nonspecific and potentially may be postsurgical. Osteomyelitis would be difficult to entirely exclude. No immediate postoperative comparison available. D/ / Ac Anguiano MD / Ac Anguiano MD Interpreting Provider: Ac Anguiano MD Consult Discharge Plan - Plan Referrals: NONE,PCP [Primary Care Provider] - 1 week
--- NOTE | 2018-11-24 18:03 | Electrocardiograph Report ---
[place] [id number] Test Date: 2018-11-23 Pat Name: Tosin Pappas Department: EDP-11 Room: [facility] Gender: F [employer] Watchman: : 1980 Requested By: Oskar Kearns Order Number: [id number] Reading MD: [place] Her Measurements Intervals [place] Rate: 129 P: 70 ND: 139 QRS: 76 QRSD: 95 T: 16 QT: 299 QTc: 438 Interpretive Statements Sinus tachycardia LAE, consider biatrial enlargement Left ventricular hypertrophy Electronically Signed On 11-24-2018 18:02:31 EDT by Berlin Her
[2018-11-24 21:20] LABS: Estimated Average Glucose 212 mg/dl
[2018-11-25] MEDS: Clindamycin 900 MG/50 ML 900 MG/50 ML IV.SOLN IVPB SCH ×3 (00:13→16:27)
[2018-11-25] MEDS: 0.9 % Sodium Chloride w KCl 20 MEQ/1,000 ML MLS IVC SCH ×3 (00:16→18:30)
[2018-11-25] MEDS: *HR* OxyCODONE/APAP 5/325 TABLET PO PRN ×5 (01:28→22:53)
[2018-11-25] MEDS: *HR* Promethazine 25 MG/ML VIAL IVP PRN ×5 (01:31→22:53)
[2018-11-25 05:47] LABS: Basophils % 0.2 %; Eosinophils % 0.9 %; Hematocrit 26.9 % (35.3-44.9); Immature Granulocytes % 0.4 % (0-4); Lymphocytes # 2.1 K/mcL (0.6-4.6); Lymphocytes % 12.9 %; Mean Corpuscular HGB Conc 33.5 g/dL (31.6-35.5); Mean Corpuscular Hemoglobin 28.1 pg (28.0-33.3); Mean Corpuscular Volume 84.1 fL (83.0-100.0); Mean Platelet Volume 10.8 fL (9.4-12.4); Monocytes # 1.1 K/mcL (0.0-1.3); Monocytes % 6.6 %; Neutrophils # 12.6 K/mcL (1.6-8.9); Platelet Count 298 K/mcL (140-400); Red Cell Distribution Width 13.4 % (11.5-14.5)
[2018-11-25 05:54] LABS: Eosinophils # 0.1 K/mcL (0.0-0.6)
[2018-11-25 06:15] LABS: BUN/Creatinine Ratio 18 (6-26); Blood Urea Nitrogen 20 mg/dL (6-20); Calcium 8.9 mg/dL (8.6-10.3); Carbon Dioxide 16 mEq/L (23-29); Chloride 109 mEq/L (98-107); Glucose 274 mg/dL (70-105); Osmolality,Calculated 286 (280-300); Potassium 3.6 mEq/L (3.5-5.1); Sodium 132 mEq/L (136-145); eGFR For Non-African Americans 56 (> 60)
[2018-11-25] MEDS: Nicotine 21 MG PATCH.TD24 TD SCH (07:51)
[2018-11-25] MEDS: Lactobacillus 1 EACH CAP.SPRINK PO SCH ×2 (07:52→20:43)
[2018-11-25] MEDS: Insulin LISPRO 300 UNITS/3 ML VIAL SQ SCH ×4 (08:04→20:43)
[2018-11-25] MEDS: Insulin DETEMIR 100 UNIT/ML X5UNITS SQ SCH ×2 (08:04→20:43)
--- NOTE | 2018-11-25 09:49 | Internal Med Progress Note ---
Date of Encounter: 11/25/18 Time of Encounter: 09:40 - Assessment and plan (1) DKA (diabetic ketoacidoses) Current Visit: Yes Status: Acute Assessment and plan: November 24. Improving. Continue IV fluids and SSI. November 25. Further improved. CO2 16 and resolution of ketosis. Continue present Rx. Qualifiers: Diabetes mellitus type: type 1 Diabetes mellitus complication detail: without coma Qualified Code(s): E13.10 - Other specified diabetes mellitus with ketoacidosis without coma (2) Cellulitis of left hand Current Visit: Yes Status: Acute Assessment and plan: November 24. WBC has decreased to 19.0 with 89.6% segs. She remains afebrile. C ontinue present Rx. Recheck labs in a.m. November 25. WBC further decreased to 16.0 with 79% segs. Repeat hand CT to see if abscess developing. (3) Hypercalcemia Current Visit: Yes Status: Acute Assessment and plan: November 24. Resolved. Calcium is normalized to 9.6 with albumin 3.6. (4) JACK (acute kidney injury) Current Visit: No Status: Acute Assessment and plan: November 24. Improved. BUN and creatinine are 30 and 1.17 respectively with estimated GFR 51. Continue present Rx and recheck labs in a.m. November 25. BUN and creatinine further improved to 20 and 1.09 respectively with estimated GFR 56. Continue present Rx and recheck labs in a.m. (5) Hepatitis C Current Visit: No Status: Chronic Qualifiers: Viral hepatitis chronicity: chronic Hepatic coma status: without hepatic coma Qualified Code(s): B18.2 - Chronic viral hepatitis C (6) Hypertension Current Visit: No Status: Chronic Assessment and plan: November 24. Continue metoprolol. Qualifiers: Hypertension type: essential hypertension Qualified Code(s): I10 - Essential (primary) hypertension (7) Foot abscess, left Current Visit: No Status: Acute Assessment and plan: November 24. CT of left ankle showed diffuse soft tissue edema with soft tissue wound/ulceration seen medially and laterally. There was no organized fluid collection or evidence of subcutaneous gas. There were postsurgical changes of amputation with cortical regularity (? irregularity) at the amputation site of the calcaneus with osteomyelitis difficult to entirely exclude. She will likely need follow-up imaging to ensure osteomyelitis not present. (8) Tobacco abuse Current Visit: No Status: Chronic Assessment and plan: November 24. Continue NicoDerm patch (9) Anxiety Current Visit: No Status: Acute Assessment and plan: November 24. Remain off Klonopin. Continue Xanax prn. (10) Anemia Current Visit: No Status: Chronic Assessment and plan: November 24. Hemoglobin has decreased to 10.1 with hydration. Anemia testing shows iron 41, transferrin saturation 70%, transferrin 177, ferritin 212, B12 524, and folate 7.1. Continue to monitor CBC periodically. November 25. Hemoglobin decreased to 9.0. Start trial of ferrous sulfate with ascorbic acid. Qualifiers: Anemia type: unspecified type Qualified Code(s): D64.9 - Anemia, unspecified (11) Vomiting Current Visit: No Status: Acute Assessment and plan: November 24. Improved. Continue present Rx. Qualifiers: Vomiting type: bilious vomiting Nausea presence: with nausea Qualified Code(s): R11.14 - Bilious vomiting - Subjective Interval history: November 24. She has no new complaints. She reports her only pain is in the left hand. November 25. She complains of left hand pain. - Constitutional Vitals: Temp Pulse Resp BP Pulse Ox 99.2 F 105 18 146/79 100 11/25/18 06:44 11/25/18 06:44 11/25/18 06:44 11/25/18 06:44 11/25/18 06:44 Exam: She is resting comfortably in bed appears in no acute distress. Her left hand is wrapped in gauze with ruptured bullae serous drainage with dried secretions visible on the gauze wrap. I reviewed her medications and lab results. Internal Medicine: Result - Labs CBC & Chem 7: 11/25/18 04:53 11/25/18 04:53 Labs: Short CBC 11/25/18 Range/Units 04:53 WBC 16.0 H (4.3-11.1) K/mcL Hgb 9.0 L (11.5-15.4) g/dL Hct 26.9 L (35.3-44.9) % Plt Count 298 (140-400) K/mcL Neutrophils # 12.6 H (1.6-8.9) K/mcL BMP 11/25/18 04:53 Sodium 132 L Potassium 3.6 Chloride 109 H Carbon Dioxide 16 L BUN 20 Creatinine 1.09 Glucose 274 H Calcium 8.9 - ABG Interpretation ABG results: ABG ABG pH 7.25 pH Units (7.32-7.45) L 11/23/18 10:05 ABG pCO2 22 mmHg (35-45) L 11/23/18 10:05 ABG pO2 97 mmHg (85-104) 11/23/18 10:05 ABG O2 Saturation 97 % (95-98) 11/23/18 10:05 Consult Discharge Plan - Plan Referrals: NONE,PCP [Primary Care Provider] - 1 week
[2018-11-25] MEDS: ALPRAZolam 0.25 MG TABLET PO PRN (22:53)
[2018-11-26] MEDS: Clindamycin 900 MG/50 ML 900 MG/50 ML IV.SOLN IVPB SCH ×3 (00:03→16:52)
[2018-11-26] MEDS: *HR* OxyCODONE/APAP 5/325 TABLET PO PRN ×5 (02:56→21:31)
[2018-11-26] MEDS: *HR* Promethazine 25 MG/ML VIAL IVP PRN ×5 (02:57→21:31)
[2018-11-26] MEDS: 0.9 % Sodium Chloride w KCl 20 MEQ/1,000 ML MLS IVC SCH ×2 (03:31→12:29)
[2018-11-26] MEDS: Ascorbic Acid 500 MG TABLET PO SCH (05:50)
[2018-11-26 06:12] LABS: Basophils % 0.2 %; Eosinophils # 0.1 K/mcL (0.0-0.6); Eosinophils % 0.8 %; Immature Granulocytes % 0.6 % (0-4); Lymphocytes % 11.6 %; Mean Corpuscular HGB Conc 33.3 g/dL (31.6-35.5); Mean Corpuscular Hemoglobin 27.9 pg (28.0-33.3); Mean Corpuscular Volume 83.6 fL (83.0-100.0); Mean Platelet Volume 10.8 fL (9.4-12.4); Monocytes % 5.5 %; Neutrophils # 13.9 K/mcL (1.6-8.9); Platelet Count 209 K/mcL (140-400); Red Blood Count 2.87 M/mcL (3.82-4.97); Red Cell Distribution Width 13.3 % (11.5-14.5); Segmented Neutrophils % 81.3 %
[2018-11-26 06:13] LABS: Monocytes # 0.9 K/mcL (0.0-1.3)
[2018-11-26] MEDS: ALPRAZolam 0.25 MG TABLET PO PRN ×3 (08:23→22:36)
[2018-11-26] MEDS: Insulin LISPRO 300 UNITS/3 ML VIAL SQ SCH ×4 (08:23→21:21)
[2018-11-26] MEDS: Nicotine 21 MG PATCH.TD24 TD SCH (08:25)
[2018-11-26] MEDS: Lactobacillus 1 EACH CAP.SPRINK PO SCH ×2 (08:26→21:20)
[2018-11-26 09:30] LABS: BUN/Creatinine Ratio 17 (6-26); Blood Urea Nitrogen 18 mg/dL (6-20); Calcium 8.4 mg/dL (8.6-10.3); Carbon Dioxide 15 mEq/L (23-29); Chloride 105 mEq/L (98-107); Glucose 387 mg/dL (70-105); Osmolality,Calculated 284 (280-300); Potassium 4.6 mEq/L (3.5-5.1); Sodium 128 mEq/L (136-145); eGFR For Non-African Americans 59 (> 60)
[2018-11-26] MEDS: Insulin DETEMIR 100 UNIT/ML X5UNITS SQ SCH ×2 (09:50→21:21)
--- NOTE | 2018-11-26 15:35 | Internal Med Progress Note ---
Date of Encounter: 11/26/18 Time of Encounter: 15:25 - Assessment and plan (1) DKA (diabetic ketoacidoses) Current Visit: Yes Status: Acute Assessment and plan: November 24. Improving. Continue IV fluids and SSI. November 25. Further improved. CO2 16 and resolution of ketosis. Continue present Rx. Qualifiers: Diabetes mellitus type: type 1 Diabetes mellitus complication detail: without coma Qualified Code(s): E13.10 - Other specified diabetes mellitus with ketoacidosis without coma (2) Cellulitis of left hand Current Visit: Yes Status: Acute Assessment and plan: November 24. WBC has decreased to 19.0 with 89.6% segs. She remains afebrile. C ontinue present Rx. Recheck labs in a.m. November 25. WBC further decreased to 16.0 with 79% segs. Repeat hand CT to see if abscess developing. November 26. WBC minimally increased to 17.[address] showed no abscess. Continue IV clindamycin with lactobacillus and recheck labs in a.m. (3) Hypercalcemia Current Visit: Yes Status: Acute Assessment and plan: November 24. Resolved. Calcium is normalized to 9.6 with albumin 3.6. (4) JACK (acute kidney injury) Current Visit: No Status: Acute Assessment and plan: November 24. Improved. BUN and creatinine are 30 and 1.17 respectively with estimated GFR 51. Continue present Rx and recheck labs in a.m. November 25. BUN and creatinine further improved to 20 and 1.09 respectively with estimated GFR 56. Continue present Rx and recheck labs in a.m. November 26. Creatinine further decreased at 1.04 with estimated GFR 59. Continue to monitor. (5) Hepatitis C Current Visit: No Status: Chronic Qualifiers: Viral hepatitis chronicity: chronic Hepatic coma status: without hepatic coma Qualified Code(s): B18.2 - Chronic viral hepatitis C (6) Hypertension Current Visit: No Status: Chronic Assessment and plan: November 24. Continue metoprolol. Qualifiers: Hypertension type: essential hypertension Qualified Code(s): I10 - Essential (primary) hypertension (7) Foot abscess, left Current Visit: No Status: Acute Assessment and plan: November 24. CT of left ankle showed diffuse soft tissue edema with soft tissue wound/ulceration seen medially and laterally. There was no organized fluid collection or evidence of subcutaneous gas. There were postsurgical changes of amputation with cortical regularity (? irregularity) at the amputation site of the calcaneus with osteomyelitis difficult to entirely exclude. She will likely need follow-up imaging to ensure osteomyelitis not present. (8) Tobacco abuse Current Visit: No Status: Chronic Assessment and plan: November 24. Continue NicoDerm patch (9) Anxiety Current Visit: No Status: Acute Assessment and plan: November 24. Remain off Klonopin. Continue Xanax prn. (10) Anemia Current Visit: No Status: Chronic Assessment and plan: November 24. Hemoglobin has decreased to 10.1 with hydration. Anemia testing shows iron 41, transferrin saturation 70%, transferrin 177, ferritin 212, B12 524, and folate 7.1. Continue to monitor CBC periodically. November 25. Hemoglobin decreased to 9.0. Start trial of ferrous sulfate with ascorbic acid. November 26. Hemoglobin decreased 8.0. Discontinue IV fluids and monitor labs. Qualifiers: Anemia type: unspecified type Qualified Code(s): D64.9 - Anemia, unspecified (11) Vomiting Current Visit: No Status: Acute Assessment and plan: November 24. Improved. Continue present Rx. Qualifiers: Vomiting type: bilious vomiting Nausea presence: with nausea Qualified Code(s): R11.14 - Bilious vomiting - Subjective Interval history: November 24. She has no new complaints. She reports her only pain is in the left hand. November 25. She complains of left hand pain. November 26. She has no new complaints. - Constitutional Vitals: Temp Pulse Resp BP Pulse Ox 99.7 F H 109 16 139/70 97 11/26/18 15:12 11/26/18 15:12 11/26/18 15:12 11/26/18 15:12 11/26/18 15:12 Exam: She is resting currently in bed and appears in no acute distress. Her left hand shows decreasing erythema. I reviewed her medications and lab results. Internal Medicine: Result - Labs CBC & Chem 7: 11/26/18 05:55 11/26/18 05:55 Labs: Short CBC 11/26/18 Range/Units 05:55 WBC 17.1 H (4.3-11.1) K/mcL Hgb 8.0 L (11.5-15.4) g/dL Hct 24.0 L (35.3-44.9) % Plt Count 209 (140-400) K/mcL Neutrophils # 13.9 H (1.6-8.9) K/mcL BMP 11/26/18 05:55 Sodium 128 L Potassium 4.6 Chloride 105 Carbon Dioxide 15 L BUN 18 Creatinine 1.04 Glucose 387 H Calcium 8.4 L - ABG Interpretation ABG results: ABG ABG pH 7.25 pH Units (7.32-7.45) L 11/23/18 10:05 ABG pCO2 22 mmHg (35-45) L 11/23/18 10:05 ABG pO2 97 mmHg (85-104) 11/23/18 10:05 ABG O2 Saturation 97 % (95-98) 11/23/18 10:05 - Impressions Impressions Hand CT 11/23/18 11:10 IMPRESSION: 1. Soft tissue edema in the hand especially in the soft tissues around the thenar musculature. No fluid collection or abscess. D/ / 11/23/2018 12:54:31 Jesse Aparicio MD / Charlotte Mercado Interpreting Provider: Jesse Aparicio MD Consult Discharge Plan - Plan Referrals: NONE,PCP [Primary Care Provider] - 1 week
[2018-11-26] MEDS: Cholecalciferol (D-3) 1,000 UNIT TABLET PO SCH (16:51)
[2018-11-27] MEDS: Clindamycin 900 MG/50 ML 900 MG/50 ML IV.SOLN IVPB SCH ×2 (01:13→07:58)
[2018-11-27] MEDS: *HR* Promethazine 25 MG/ML VIAL IVP PRN ×3 (01:39→11:35)
[2018-11-27] MEDS: *HR* OxyCODONE/APAP 5/325 TABLET PO PRN ×3 (01:39→11:34)
[2018-11-27] MEDS: ALPRAZolam 0.25 MG TABLET PO PRN ×2 (05:42→11:34)
[2018-11-27] MEDS: Ascorbic Acid 500 MG TABLET PO SCH (05:42)
[2018-11-27 06:16] LABS: Basophils % 0.2 %; Eosinophils # 0.1 K/mcL (0.0-0.6); Eosinophils % 0.8 %; Hematocrit 30.3 % (35.3-44.9); Immature Granulocytes % 0.6 % (0-4); Lymphocytes # 1.5 K/mcL (0.6-4.6); Lymphocytes % 10.8 %; Mean Corpuscular HGB Conc 33.7 g/dL (31.6-35.5); Mean Corpuscular Volume 83.2 fL (83.0-100.0); Mean Platelet Volume 10.8 fL (9.4-12.4); Monocytes # 0.6 K/mcL (0.0-1.3); Monocytes % 4.6 %; Neutrophils # 11.5 K/mcL (1.6-8.9); Platelet Count 171 K/mcL (140-400); Red Blood Count 3.64 M/mcL (3.82-4.97); Red Cell Distribution Width 13.3 % (11.5-14.5)
[2018-11-27 06:27] LABS: Hemoglobin 10.2 g/dL (11.5-15.4)
[2018-11-27 06:48] VITALS: BP 113/60
[2018-11-27 06:48] LABS: BUN/Creatinine Ratio 17 (6-26); Blood Urea Nitrogen 18 mg/dL (6-20); Calcium 8.7 mg/dL (8.6-10.3); Carbon Dioxide 20 mEq/L (23-29); Chloride 99 mEq/L (98-107); Glucose 390 mg/dL (70-105); Osmolality,Calculated 278 (280-300); Potassium 4.7 mEq/L (3.5-5.1); Sodium 125 mEq/L (136-145); eGFR For Non-African Americans 56 (> 60)
[2018-11-27] MEDS: Insulin LISPRO 300 UNITS/3 ML VIAL SQ SCH ×2 (07:58→11:33)
[2018-11-27] MEDS: Nicotine 21 MG PATCH.TD24 TD SCH (08:00)
[2018-11-27] MEDS: Lactobacillus 1 EACH CAP.SPRINK PO SCH (08:00)
[2018-11-27] MEDS: Cholecalciferol (D-3) 1,000 UNIT TABLET PO SCH (08:00)
[2018-11-27] MEDS: Insulin DETEMIR 100 UNIT/ML X5UNITS SQ SCH (09:28)
[2018-11-27] MEDS ORDERED: Gabapentin 300 MG CAPSULE PO SCH (15:00)
--- NOTE | 2018-11-27 15:36 | Discharge Summary ---
Orders not resulted at time of discharge: Pending orders 11/23/18 09:32 Culture,Blood [BC] Stat 11/24/18 04:10 Zinc AM 0400 Date of Encounter: 11/27/18 Time of Encounter: 12:30 - Discharge Diagnosis (1) Cellulitis of left hand Priority: Primary Status: Acute (2) DKA (diabetic ketoacidoses) Priority: Secondary Status: Resolved Qualifiers: Diabetes mellitus type: type 1 Diabetes mellitus complication detail: without coma Qualified Code(s): E13.10 - Other specified diabetes mellitus with ketoacidosis without coma (3) Hypercalcemia Priority: Secondary Status: Resolved (4) JACK (acute kidney injury) Priority: Secondary Status: Acute (5) Hepatitis C Priority: Secondary Status: Chronic Qualifiers: Viral hepatitis chronicity: chronic Hepatic coma status: without hepatic coma Qualified Code(s): B18.2 - Chronic viral hepatitis C (6) Hypertension Priority: Secondary Status: Chronic Qualifiers: Hypertension type: essential hypertension Qualified Code(s): I10 - Essential (primary) hypertension (7) Foot abscess, left Priority: Secondary Status: Chronic (8) Tobacco abuse Priority: Secondary Status: Chronic (9) Anxiety Priority: Secondary Status: Chronic (10) Anemia Priority: Secondary Status: Chronic Qualifiers: Anemia type: unspecified type Qualified Code(s): D64.9 - Anemia, unspecified (11) Vomiting Priority: Secondary Status: Resolved Qualifiers: Vomiting type: bilious vomiting Nausea presence: with nausea Qualified Code(s): R11.14 - Bilious vomiting Hospital course: Ms. Pappas is a 38 year old female who came to emergency room stating she had 4 episodes of vomiting and increased pain and redness in her left hand onset 11/21/2018. She reports at least one episode of vomiting contained what appeared to be dark blood. She denies fevers chills or diarrhea. She came to emergency room and was found to have evidence of left hand cellulitis and DKA. She was admitted to [facility] floor for ongoing care needs. Initial orders were written by the emergency room physician. I saw her on November 23 and performed the history and physical. She was given IV fluids and insulin. DKA gradually resolved. She was maintained on basal insulin with Accu-Cheks with SSI. She was started on IV clindamycin with a dose of vancomycin given in emergency room. Lactobacillus was also given. Hand CT in ER showed no evidence of abscess. Repeat hand CT 11/25/2018 showed no abscess development. There was gradual decline in WBC over the course of her [facility] hospitalization to 13.8 K with persistent left shift on November 27. I referred her to [facility] for orthopedic evaluation of the hand infection on November 27. Dr. Degroot agreed with continuing IV antibiotics for minimum of 5-7 days. I explained that she should not stay at [facility] because of critical access hospital regulations. He did not feel comfortable with her being discharged to a SNF. It was agreed she should be transferred to [facility] inpatient for ongoing care needs. CT of left ankle was done to further evaluate the amputation area. There was diffuse soft tissue edema without organized fluid collection identified. There was reported cortical regularity (? irregularity) at the amputation site of the calcaneus which was nonspecific with osteomyelitis difficult to entirely exclude. She was evaluated by shoe singer on November 27 with report pending at this dictation. Anemia testing showed iron 41, transferrin saturation 17%, transferrin 177, ferritin 212, B12 524, and folate 7.1. She was started on ferrous sulfate with ascorbic acid. Vitamin D level was low at 13. She was started on vitamin D supplementation. - Time Spent with Patient Total time spent providing and/or coordinating discharge services: - Discharge Medications Prescriptions: No Action Insulin Regular, Human [Novolin R] 5 unit SQ TIDWM Insulin Glargine,Hum.rec.anlog [Basaglar Kwikpen U-100] 25 unit SQ HS Gabapentin [Neurontin] 600 mg PO TID Lisinopril [Zestril] 30 mg PO DAILY HydrOXYzine Pamoate [Vistaril] 50 mg PO TID Doxycycline 300 mg PO TID Metoprolol 1 tab PO QAM Oxycodone HCl/Acetaminophen [Percocet 10-325 mg Tablet] 1 each PO Q4H PRN PRN Reason: Pain Ibuprofen 800 mg PO TID PRN #15 tablet PRN Reason: Pain Home Medications: Insulin Regular, Human [Novolin R] 5 unit SQ TIDWM 07/26/17 [History] Insulin Glargine,Hum.rec.anlog [Basaglar Kwikpen U-100] 25 unit SQ HS 05/07/18 [History] Gabapentin [Neurontin] 600 mg PO TID 03/19/19 [History] Doxycycline 300 mg PO TID 10/27/18 [History] HydrOXYzine Pamoate [Vistaril] 50 mg PO TID 10/27/18 [History] Ibuprofen 800 mg PO TID PRN #15 tablet 10/27/18 [Rx] Lisinopril [Zestril] 30 mg PO DAILY 10/27/18 [History] Metoprolol 1 tab PO QAM 10/27/18 [History] Oxycodone HCl/Acetaminophen [Percocet 10-325 mg Tablet] 1 each PO Q4H PRN 10/27/18 [History] Allergies/Adverse Reactions: Allergy/AdvReac Type Severity Reaction Status Date / Time Amoxicillin Allergy See Verified 10/16/18 23:30 Comments codeine Allergy Hives Verified 10/16/18 23:30 hydrocodone Allergy Rash Verified 10/16/18 23:30 tramadol AdvReac Anxiety Verified 10/16/18 23:30 Date of admission: 11/23/18 15:47 Primary care physician: Pipo Roberts [facility] Consults: 11/26/18 15:30 Consult to Occupational Therapy [CONS] Routine Comment: Evaluate, develop and implement POC Reason for Consult: Weakness Does patient have active BEDREST order?: No Is patient medically & hemodynamically stable?: Yes Patient assessed for mobility or mobilized this visit?: Yes Consult to Physical Therapy [CONS] Routine Comment: Evaluate, develop and implement POC Reason for Consult: Weakness Does patient have active BEDREST order?: No Is patient medically & hemodynamically stable?: Yes Patient assessed for mobility or mobilized this visit?: Yes - Constitutional Vitals: Temp Pulse Resp BP Pulse Ox 99.6 F 109 14 113/60 98 11/27/18 06:45 11/27/18 06:45 11/27/18 06:45 11/27/18 06:45 11/27/18 06:45 - Patient Status Disposition: Transfer Other Condition: Fair - Discharge Instructions
== END 2018-11-27 16:39 | disposition other institution (70) | DRG 383 ==
LOC: INPPIK 08:22 → EMEROOPIK 08:22 → INPPIK 14:55
PROVIDERS: ADMIT Internal Medicine; ATTEND Internal Medicine